=== PATIENT | female | born 1960 | race Caucasian/White ===

== ENCOUNTER → 2016-10-11 09:21 | Outpatient (CLI) | payer MEDICARE ==
[2016-03-15 09:36] VITALS: BMI 20.1
[~2016-10-11 09:21] MED LIST: BAYER CHEWABLE81 MG PO; CARAFATE1 G PO; CIPRO250 MG PO; DILAUDID4 MG PO; DYAZIDE 37.5/251 CAP PO; HYDROCODONE-APA1 TAB PO; LIBRAX CAPSULE1 CAP PO; NEXIUM40 MG PO; PLETAL100 MG PO; PROTONIX40 MG PO; REGLAN5 MG PO; REVATIO20 MG PO
== END | disposition home or self-care (01) ==
LOC: D.CT 09:21
DX: R13.10 Dysphagia, unspecified (principal)

== ENCOUNTER → 2016-11-13 08:06 | Day surgery (SDC) | payer MEDICARE ==
[~2016-11-13] VITALS: Ht 167.6 cm; Wt 47.6 kg
[~2016-11-13 08:06] MED LIST changes: +ZANTAC150 MG PO
[2016-11-13 08:48] VITALS: BP 116/74; Ht 167.6 cm; Wt 47.6 kg
[2016-11-13 09:40] LABS: HEMATOCRIT 37.2 % (36.0-48.0); HEMOGLOBIN 12.5 g/dL (12-16); MCH 37.7 pg (26.0-34.0); MCHC 33.6 g/dL (31.0-37.0); MEAN PLATELET VOLUME 9.6 fL (7.4-10.4); RBC 3.32 10x6/uL (4.00-5.40); RDW 14.4 % (11.5-14.5)
[2016-11-13 09:54] LABS: HCG SERUM NEGATIVE (NEGATIVE)
--- NOTE | 2016-11-13 15:32 | NUR ---
1305 PT ESCORTED OUT BY VOLUNTEER AND ACCOMPANIED BY HER SISTER.
== END | disposition home or self-care (01) ==
LOC: D.OPS 08:00
PROVIDERS: Anesthesiology; Surgery
DX: K22.70 Barrett's esophagus without dysplasia (principal); R13.10 Dysphagia, unspecified; K21.9 Gastro-esophageal reflux disease without esophagitis; Z01.812 Encounter for preprocedural laboratory examination

== ENCOUNTER 2016-12-09 13:56 | Outpatient (CLI) | payer MEDICARE ==
--- NOTE | 2016-12-09 15:12 | NUR ---
1415-PATIENT BEING ESCORTED WITH VOLUNTEER TO OUTPATIENT DEPARTMENT. FELL IN THE HALLWAY. LANDED ON HER RIGHT SIDE, BUT HAD ALREADY TURNED ONTO HER BACK BEFORE NURSE ARRIVED TO ASSESS HER. R SIDE OF FACE REDDENED AND STARTING TO SWELL, ICE PACK APPLIED. COMPLAINS OF R WRIST PAIN, BUT ABLE TO MOVE HAND/FINGERS. STATES NECK IS STIFF. ER NOTIFIED TO BRING STRETCHER. SLIDE BOARD AND C COLLAR. ELECTORATE OFFICER NOTIFIED. ENGINEERING NOTIFIED. PATIENT AND HER SISTER IN AGREEMENT TO GO TO ER FOR EVALUATION. 1430-TRANSPORTED TO THE ER VIA STRETCHER WITH C COLLAR IN PLACE. 1445-DR BEGUM'S NURSE, SD, NOTIFIED OF ABOVE.
[2016-12-09 16:36] LABS: BASOPHILS 0.4 % (0-2); EOSINOPHILS 0.5 % (0-7); HEMATOCRIT 37.4 % (36.0-48.0); HEMOGLOBIN 12.7 g/dL (12-16); IMMATURE GRANULOCYTES 0.2 % (0-5); LYMPHOCYTES 25.7 % (15-50); MCH 37.4 pg (26.0-34.0); MEAN PLATELET VOLUME 9.7 fL (7.4-10.4); MONOCYTES 11.2 % (2-11); PLATELET COUNT 283 10x3/uL (130-400); RDW 14.9 % (11.5-14.5); WBC 5.6 10x3/uL (4.8-10.8)
[2016-12-09 16:52] LABS: ALKALINE PHOSPHATASE 423 U/L (46-116); ALT (SGPT) 46 U/L (10-68); BILIRUBIN - TOTAL 2.26 mg/dL (0.2-1.3); CALC OSMOLALITY 274 mosm/kg (275-300); CALCIUM 7.7 mg/dL (8.5-10.1); CARBON DIOXIDE 31.4 mmol/L (21.0-32.0); CHLORIDE - SERUM 99 mmol/L (98-107); CREATININE - SERUM 0.3 mg/dL (0.6-1.3); GLUCOSE 102 mg/dL (74-106); PROTEIN - SERUM 6.2 g/dL (6.4-8.2); SODIUM 138 mmol/L (136-145); UREA NITROGEN 9 mg/dL (7-18); eGFR NON AFRICAN AMERICAN > 90 mL/min (90-120)
[2016-12-09 19:31] VITALS: Ht 167.6 cm
--- NOTE | 2016-12-09 20:09 | NUR ---
PATIENT TRANSFERRED TO ROOM 2237 IN WHEELCHAIR FOR REMAINDER OF INFUSION
--- NOTE | 2016-12-09 20:45 | NUR ---
RECIEVED PT TO FLOOR FROM OUTPATIENT. K+ RIDERS INFUSING AT THIS TIME. PT IS ALERT AND ORIENTED AND ABLE TO VERBALIZE NEEDS. PT TRANSFERED SELF TO BED FROM WHEELCHAIR. PT IS ORIENTED TO ROOM AND USE OF CALL LIGHT. NO NEEDS ARE VERBALIZED AT THIS TIME. WILL CONTINUE TO MONITOR. SIDE RAILS ARE UP X 2. BED IS IN LOWEST POSITION. CALL LIGHT IS WITHIN REACH.
--- NOTE | 2016-12-10 02:30 | NUR ---
K+ RIDERS FINISHED AT THIS TIME. IV D/C'D WITH CATHETER TIP INTACT. PT WHEELED DOWN TO AWAITING RIDE.
== END 2016-12-10 02:30 | disposition home or self-care (01) ==
LOC: D.OPS 13:56 → D.ER 13:56 → D.MS 20:10 → D.OPS 12-10 02:30
PROVIDERS: Family Medicine
DX: E87.6 Hypokalemia (principal); S06.0X0A Concussion without loss of consciousness, initial encounter; W01.198A Fall on same level from slipping, tripping and stumbling with subsequent striking against other object, initial encounter; S16.1XXA Strain of muscle, fascia and tendon at neck level, initial encounter; S63.501A Unspecified sprain of right wrist, initial encounter

== ENCOUNTER → 2017-02-28 07:41 | Outpatient (CLI) | payer MEDICARE | END | disposition home or self-care (01) | LOC: D.CT 07:41 | DX: R94.5 Abnormal results of liver function studies (principal) ==

== ENCOUNTER 2017-03-10 13:59 | Inpatient (IN) | payer MEDICARE ==
[~2017-03-10] VITALS: Ht 167.6 cm; Wt 79.1 kg
--- NOTE | ~2017-03-10 | HEMODYNAMI ---
PATIENT:KINGSLEY BASHIR MEDICAL RECORD: [id number] : 64 LOCATION:[facility] D.[address] [facility]# [id number] ADMISSION DATE: 03/10/17 Generatedon:03/18/201713:21 Patient name: KINGSLEY BASHIR Patient #: [id number] SSN: [id number] : 1960 Date of study: 03/18/2017 Page: Of Hemodynamic Procedure Report Patient Data Patient Demographics Procedure consent was obtained First Name: KINGSLEY Gender: Female Last Name: MCKAY : 1960 Middle Initial: PATTI Age: 56 year(s) Patient #: [id number] Race: SSN: [id number] Additional ID: [id number] Contact details [address]: [address] [place] [address] rd State: [place] City: [place] Zip code: [address] Past Medical History Allergies Allergen Reaction Date Comments Reported Other allergy 03/18/2017 rocephin Admission Admission Data Admission Date: 03/10/2017 Admission Time: 19:18 Room #: [facility] Procedure Procedure Types Cath Procedure Diagnostic Procedure [facility] w/Coronaries Miscellaneous Procedures Moderate Sedation up to 30 minutes Procedure Description Procedure Date Procedure Date: 03/18/2017 Procedure Start Time: 12:48 Procedure End Time: 13:08 Procedure Staff Name Function Yariel Gonsalez MD Performing Physician Nelia Fitzpatrick RT Monitor Ana Padilla RT Scrub Krysten Chery RN Nurse Lashonda Soriano RT Scrub Procedure Data Cath Procedure Fluoroscopy Diagnostic fluoroscopy Total fluoroscopy Time: 4.2 time: 4.2 min min Diagnostic fluoroscopy Total fluoroscopy dose: 363 dose: 363 mGy mGy Contrast Material Contrast Material Type Amount (ml) Isovue 300 35 Entry Location Entry Primary Successful Side Size Upsize Upsize Entry Closure Fernando ccessful Closure Location (Fr) 1 (Fr) 2 (Fr) Remarks Device Remarks Femoral Right 5 Fr Manual vein Compression Femoral Right 5 Fr Sheath artery sutured in place Estimated blood loss: 5 ml Diagnostic catheters Device Type Used For End Catheter Placement Cordis 5Fr JL 4.0 Left Coronary Catheter (MP) Angiography Cordis 5Fr 3DRC Catheter Right Coronary (MP) Angiography Cordis 5Fr Pigtail LV Angiography Catheter (MP) Procedure Complications No complications Procedure Medications Medication Administration Route Dosage Oxygen 100 Lidocaine 2% added to field 20 Heparin Flush Bag added to field 2 bags (1000units/500ml NS) unlisted medication Hemodynamics Rest Heart Rate: 90 (bpm) Pressure Samples Time Site Value (mmHg) Purpose Heart Use Rate(bpm) 13:02 LV 107/27,42 EDP 187 Gradients Valve Time Site Site Mean SEP/DFP Peak To Heart Use 1 2 (mmHg) (sec/min) Peak Rate (mmHg) (bpm) Aortic 13:04 LV AO 215 Snapshots Pre Cath Intra NCS Post Cath Vital Signs Time Heart Resp etCO2 NIBP Rhythm Pain Sedation Rate (ipm) (mmHg) (mmHg) Status Level (bpm) 12:45:48 122 16 0 102/79(89) ST 0 (11) 4(A) , No pain 12:49:48 126 16 0 98/77(92) ST 0 (11) 4(A) , No pain 12:53:56 123 16 0 98/74(88) ST 0 (11) 4(A) , No pain 12:57:56 120 16 0 97/77(92) NSR 0 (11) 4(A) , No pain 13:01:55 124 16 0 90/70(78) NSR 0 (11) 4(A) , No pain 13:06:54 124 16 0 Measuring NSR 0 (11) 4(A) , No pain 13:08:02 123 16 0 Disturbed NSR 0 (11) 4(A) , No pain Medications Time Medication Route Dose Verified Delivered Reason Not es Effectiveness by by 12:44:00 Oxygen intubated 100% Yariel Buffie for low 02 ventilator Sunshine Chery RN sats 12:44:07 Lidocaine 2% added to 20ml vial Yariel Yariel for local field Sunshine Gonsalez MD anesthetic 12:44:14 Heparin Flush added to 2 bags Yariel Yariel used for Bag field Sunshine Gonsalez MD procedure (1000units/500ml NS) 12:44:39 infusions per Yariel Yariel icu Sunshine Gonsalez MD, MD Procedure Log Time Note 11:54:57 Informed consent obtained and on chart 11:55:55 Diagnostic Cath Status : Elective 11:56:32 Nelia Fitzpatrick RT(R) sent for patient. Start room use. 11:56:33 Time tracking: Regular hours 11:56:38 Plan of Care:Hemodynamics will remain stable., Cardiac rhythm will remain stable., Comfort level will be maintained., Respiratory function will remain adequate., Patient/ family verbilizes understanding of procedure., Procedure tolerated without complication., Recovers from procedure without complications.. 12:44:00 Oxygen 100% ventilator intubated was administered by Krysten Chery RN; for low 02 sats; 12:44:07 Lidocaine 2% 20ml vial added to field was administered by Yariel Gonsalez MD; for local anesthetic; 12:44:14 Heparin Flush Bag (1000units/500ml NS) 2 bags added to field was administered by Yariel Gonsalez MD; used for procedure; 12:44:37 Patient received from ICU to [facility] 2 On ventilator. Tansferred to table in Supine position. 12:44:38 Warm blankets applied, and ignacio hugger turned on for patient comfort. 12:44:39 infusions per icu was administered by Yariel Gonsalez MD; ; 12:44:39 Correct patient and procedure confirmed by team. 12:44:50 Signed procedure consent form obtained from patient. 12:44:51 ECG and BP/O2 sat monitors applied to patient. 12:44:51 Vital chart was started 12:44:53 Baseline sample Acquired. 12:44:58 Full Disclosure recording started 12:45:02 H&P Date Dictated: 03/18/2017 New H&P dictated by physician.. 12:45:03 Pre-procedure instructions explained to patient. 12:45:04 Pre-op teaching completed and patient verbalized understanding. 12:45:06 Family in waiting room. 12:45:07 Patient NPO since Midnight. 12:46:05 Patient allergic to Other allergyrocephin 12:46:08 Is the patient allergic to Iodine/contrast media? Unknown. 12:46:09 Was the patient premedicated? Unknown 12:46:10 Is patient on blood thinner?Unknown 12:46:12 Patient diabetic? Unknown. 12:46:15 Previous problem with sedation/anesthesia? Unknown ? 12:46:17 Snore? Unknown 12:46:18 Sleep apnea? Unknown 12:46:20 Deviated septum? No 12:46:22 Opens mouth fully? Unknown 12:46:23 Sticks out tongue? Unknown 12:46:25 Airway obstruction? Unknown ? 12:46:28 Dentures? Unknown ? 12:46:33 Pre procedure: right dorsailis pedis pulse Doppler 12:46:35 Pre procedure: left dorsailis pedis pulse Doppler 12:46:38 Patient pain scale 0/10 ?. 12:47:08 IV patent on arrival in port with 0.9% NaCl at [facility]. 12:47:17 Lab results completed and on chart. 12:47:20 Right groin area was prepped with chlora-prep and draped in sterile fashion 12:47:21 Alarms reviewed by R. N. 12:47:21 Sharps counted by scrub and verified by R.N. 12:47:23 Physician arrived 12:47:23 --------ALL STOP TIME OUT------ 12:47:24 Final Timeout: patient, procedure, and site verified with staff and physician. All members of the team are in agreement. 12:47:26 Right groin site verified by team. 12:47:29 Physical assessment completed. ASA score P 4 - A patient with severe systemic disease that is a constant threat to life as per Yariel Gonsalez MD. 12:47:42 Sedation plan: IV Moderate Sedation Medication:Versed, Fentanyl 12:47:50 Use device set Femoral Dx 12:47:52 Acist Syringe opened to sterile field. 12:47:52 Bag Decanter opened to sterile field. 12:47:52 Medline Cath Pack opened to sterile field. 12:47:53 Terumo 5Fr [place] Sheath opened to sterile field. 12:47:53 St Justin 260cm J .035 wire opened to sterile field. 12:48:02 Acist Hand Control opened to sterile field. 12:48:02 Acist Manifold opened to sterile field. 12:48:03 Diagnostic Infinity 5Fr Multipack catheter opened to sterile field. 12:48:03 Tegaderm 4 x 4 opened to sterile field. 12:48:11 Procedure started. 12:48:15 Local anesthetic to right femoral artery with Lidocaine 2% by Yariel Gonsalez MD.INITIAL ACCESS ONLY 12:48:16 Access obtained with 4Fr micropunture. 12:48:31 Zero performed for pressure channel P1 12:48:57 Terumo 7Fr [place] Sheath opened to sterile field. 12:50:23 Zero performed for pressure channel P1 12:51:26 A 5 Fr sheath was inserted into the Right Femoral vein 12:55:28 Terumo 5Fr [place] Sheath opened to sterile field. 12:55:41 A 5 Fr sheath was inserted into the Right Femoral artery 12:56:38 A Cordis 5Fr JL 4.0 Catheter (MP) was advanced over the wire and used for Left Coronary Angiography. 12:58:07 LCA angiography performed. 12:58:10 Injector settings: Ml/sec: 3, Volume: 6, 12:59:18 Catheter removed. 12:59:22 A Cordis 5Fr 3DRC Catheter (MP) was advanced over the wire and used for Right Coronary Angiography. 13:00:29 RCA angiography performed. 13:00:31 Injector settings: Ml/sec: 3, Volume: 6, 13:01:08 Catheter removed. 13:01:13 A Cordis 5Fr Pigtail Catheter (MP) was advanced over the wire and used for LV Angiography. 13:02:28 LV hemodynamics recorded. 13:02:29 LV gram done using BUITRAGO 13:02:32 Injector settings: Ml/sec: 5, Volume: 15, 13:05:22 EF : 15 % 13:05:43 Catheter removed. 13:06:20 Arterial sheath sutured in place with 2.0 silk sutures 13:06:56 Sheath removed intact; hemostasis achieved with Sheath sutured in place to the Right Femoral artery. 13:07:03 Sheath removed intact; hemostasis achieved with Manual Compression to the Right Femoral vein. 13:07:06 Procedure ended.(Physican Out) 13:07:46 Fluoroscopy time 04.20 minutes. 13:07:53 Flurop Dose total: 363 13:07:53 Fluoroscopy dose: 363 mGy 13:08:00 Contrast amount:Isovue 300 35ml. 13:08:01 Sharps counted by scrub and verified by R.N. 13:08:03 Insertion/operative site no bleeding no hematoma. 13:08:11 Post right femoral artery:stable 13:08:13 Post Procedure Pulses reassessed and unchanged 13:08:18 Post procedure rhythm: unchanged. 13:08:21 Estimated blood loss: 5 ml 13:08:23 Post procedure instruction explained to patient.Patient verbalizes understanding. 13:08:23 Patient needs reinforcement of post procedure teaching. 13:08:39 Procedure type changed to Cath procedure, Diagnostic procedure, LHC, LHC w/Coronaries, Miscellaneous Procedures, Moderate Sedation up to 30 minutes 13:08:40 Procedure and supply charges have been captured, reviewed, submitted and are correct. 13:08:44 Procedure Complication : No complications 13:08:47 Vital chart was stopped 13:08:47 See physician's report for complete and final results. 13:08:52 Report given to ICU. 13:08:54 Patient transfered to ICU with Stretcher. 13:08:56 Procedure ended. 13:08:56 Full Disclosure recording stopped 13:09:00 End room use (Document Last) Device Usage Item Name Manufacture Quantity Catalog Hospital Part Current Minimal Lo t# / Number Charge Number Stock Stock Serial# Code Acist Acist 1 75148 [id number] 354882 666461 20 Syringe Medical Systems Inc Bag Microtek 1 2002S 739275 66883 759120 5 Decanter Medical Inc. Medline Cardinal 1 [id number] 883659 16549 867331 5 Cath Pack Health Terumo 5Fr Terumo 2 [id number] 488332 656974 978291 [address] [facility] 1 233943 303731 124783 285043 30 260cm J .035 wire Acist Hand Acist 1 95707 698025 125528 060592 5 Control Medical Systems Inc Acist Acist 1 87668 944214 216407 636293 5 Manifold Medical Systems Inc Diagnostic Cardinal 1 [id number] 100816 03021 954940 30 Infinity Health 5Fr Multipack catheter Tegaderm 4 3M 1 1626W 557694 735256 825765 5 x 4 Terumo 7Fr Terumo 1 XCK979 938445 406802 632584 5 [place] Sheath Cordis 5Fr Cardinal 1 344404 5 JL 4.0 Health Catheter (MP) Cordis 5Fr Cardinal 1 025847 5 3DRC Health Catheter (MP) Cordis 5Fr Cardinal 1 145878 5 Pigtail Health Catheter (MP) Signature Audit [place] Stage Time Signature Unsigned Intra-Procedure 03/18/2017 Ana Padilla 1:20:57 PM RT(R) Signatures Monitor : Nelia Fitzpatrick Signature : RT Date : Time : [facility] [address] [place] [address]
[2017-03-10 15:28] LABS: BASOPHILS 0.4 % (0-2); EOSINOPHILS 0.2 % (0-7); HEMOGLOBIN 11.9 g/dL (12-16); LYMPHOCYTES 29.5 % (15-50); MCV 108.7 fL (80.0-100.0); MEAN PLATELET VOLUME 9.8 fL (7.4-10.4); MONOCYTES 7.9 % (2-11); RBC 3.22 10x6/uL (4.00-5.40); RDW 16.2 % (11.5-14.5); WBC 4.7 10x3/uL (4.8-10.8)
[2017-03-10 15:29] LABS: PLATELET COUNT 170 10x3/uL (130-400)
[2017-03-10 15:55] LABS: ALBUMIN 1.6 g/dL (3.4-5.0); ALKALINE PHOSPHATASE 450 U/L (46-116); ALT (SGPT) 38 U/L (10-68); AMYLASE - SERUM 38 U/L (25-115); BILIRUBIN - TOTAL 2.33 mg/dL (0.2-1.3); CALCIUM 7.9 mg/dL (8.5-10.1); CARBON DIOXIDE 15.4 mmol/L (21.0-32.0); CHLORIDE - SERUM 94 mmol/L (98-107); CREATININE - SERUM 0.7 mg/dL (0.6-1.3); LIPASE 55 U/L (73-393); PROTEIN - SERUM 6.3 g/dL (6.4-8.2); SODIUM 137 mmol/L (136-145); UREA NITROGEN 4 mg/dL (7-18); eGFR NON AFRICAN AMERICAN > 90 mL/min (90-120)
[2017-03-10 15:59] LABS: CALC OSMOLALITY 267 mosm/kg (275-300); GLUCOSE 49 mg/dL (74-106); POTASSIUM - SERUM 2.6 mmol/L (3.5-5.1)
[2017-03-10 17:31] LABS: APPEARANCE CLEAR (CLEAR); BILIRUBIN NEGATIVE (NEGATIVE); COLOR AMBER (YELLOW); GLUCOSE NEGATIVE (NEGATIVE); KETONE LARGE mg/dL (NEGATIVE); NITRITE NEGATIVE (NEGATIVE); PROTEIN NEGATIVE (NEGATIVE); SPECIFIC GRAVITY 1.015 (1.005-1.020); UROBILINOGEN NORMAL (NORMAL)
--- NOTE | 2017-03-10 20:22 | NUR ---
PT RECEIVED TO ROOM 2229 VIA STRETCHER BY ER STAFF. FAMILY AT BEDSIDE.
--- NOTE | 2017-03-10 20:30 | NUR ---
ADMISSION ASSESSMENT COMPLETED AT THIS TIME. IV RIGHT FOREARM PATENT. PT AOX4, STATES WEAKNESS IN AMBULATING DUE TO POOR DIET FOR THE PAST WEEK. STATES PAIN IN RUQ 8/10. CALL LIGHT IN REACH, ENCOURAGED PT TO CALL FOR ASSISTANCE TO BATHROOM. BED LOW. WILL CONTINUE WITH PLAN OF CARE.
[2017-03-10 20:37] VITALS: BP 98/68; BMI 16.9
--- NOTE | 2017-03-10 23:06 | NUR ---
PRN ZOFRAN ADMINISTERED FOR NAUSEA.
--- NOTE | 2017-03-11 02:17 | NUR ---
PRN DILAUDID ADMINISTERED AT THIS TIME FOR PAIN 01/12. PT STATES FEELING NAUSEATED, IT IS NOT TIME FOR NEXT DOSE OF ZOFRAN. WILL CONTINUE WITH PLAN OF CARE.
[2017-03-11 04:00] VITALS: BP 74/43
[2017-03-11 09:13] LABS: BASOPHILS 0.3 % (0-2); EOSINOPHILS 0.6 % (0-7); LYMPHOCYTES 18.3 % (15-50); MCH 36.9 pg (26.0-34.0); MCHC 34.3 g/dL (31.0-37.0); MCV 107.6 fL (80.0-100.0); MEAN PLATELET VOLUME 9.2 fL (7.4-10.4); MONOCYTES 10.6 % (2-11); NEUTROPHILS 70.2 % (40-80); RDW 16.2 % (11.5-14.5)
[2017-03-11 09:18] LABS: HEMATOCRIT 26.8 % (36.0-48.0); HEMOGLOBIN 9.2 g/dL (12-16); PLATELET COUNT 117 10x3/uL (130-400); RBC 2.49 10x6/uL (4.00-5.40); WBC 3.1 10x3/uL (4.8-10.8)
[2017-03-11 09:27] LABS: ALBUMIN 1.3 g/dL (3.4-5.0); ALKALINE PHOSPHATASE 350 U/L (46-116); ALT (SGPT) 30 U/L (10-68); BILIRUBIN - TOTAL 1.62 mg/dL (0.2-1.3); CALCIUM 7.3 mg/dL (8.5-10.1); CHLORIDE - SERUM 101 mmol/L (98-107); CREATININE - SERUM 0.8 mg/dL (0.6-1.3); PROTEIN - SERUM 5.2 g/dL (6.4-8.2); SODIUM 135 mmol/L (136-145); UREA NITROGEN 3 mg/dL (7-18); eGFR NON AFRICAN AMERICAN 79 mL/min (90-120)
[2017-03-11 09:38] VITALS: BP 85/47
[2017-03-11 09:41] LABS: CALC OSMOLALITY 270 mosm/kg (275-300); GLUCOSE 178 mg/dL (74-106)
[2017-03-11 09:42] LABS: CARBON DIOXIDE 26.7 mmol/L (21.0-32.0); POTASSIUM - SERUM 2.6 mmol/L (3.5-5.1)
--- NOTE | 2017-03-11 09:43 | NUR ---
LAB CALLED WITH CRITICAL LAB. K+ 2.6.
--- NOTE | 2017-03-11 12:52 | NUR ---
Patient Name: KINGSLEY BASHIR Admission Status: ER Accout number: [id number] Admission Date: 03-10-2017 : 1960 Admission Diagnosis: Attending: Isidro Begum Current LOS: 1 Anticipated DC Date: 03-14-2017 Planned Disposition: Home Primary Insurance: MEDICARE A & B Discharge Planning Comments: CM MET WITH PATIENT REGARDING D/C NEEDS AND PLANS. PATIENT STATED SHE LIVES WITH HER SPOUSE (DARRICK) AND HE WILL DRIVE HER HOME AT DISCHARGE. PATIENT STATED SHE HAS 2 STEPS TO ENTER HOME AND NO STAIRS INSIDE. PATIENT STATED SHE IS INDEPENDENT WITH HER CARE AND HAS NO DME AT HOME. PATIENTS PCP IS DR. BEGUM AND USES [facility] ON [address]. PATIENT STATED SHE DOES NO WANT HOME HEALTH. CM WILL CONTINUE TO FOLLOW PATIENT WITH D/C NEEDS AND PLANS. [facility] [phone] DARRICK (SPOUSE) [phone] Staff Occupational Therapist: Luisa Combs Is the patient Alert and Oriented? Yes 0 * How many steps to enter\exit or inside your home? 2 0 * PCP DR. BEGUM 0 * Pharmacy [email or web address] ON [address] 0 * Preadmission Environment Home with Family 0 * ADLs Independent 0 * Equipment None 0 * List name and contact numbers for known caregivers / representatives who currently or will assist patient after discharge: DARRICK (SPOUSE) [phone] 0 * Community resources currently utilized None 0 * Additional services required to return to the preadmission environment? Yes 0 * Can the patient safely return to the preadmission environment? Yes 0 * Has this patient been hospitalized within the prior 30 days at any hospital? No 0 Grand Total: 0
[2017-03-11 13:11] VITALS: BP 87/48
[2017-03-11 16:23] VITALS: BP 83/51
--- NOTE | 2017-03-11 19:16 | NUR ---
PT VISITING [facility], STATED KANDICE RASHEED SAID PT CAN HAVE PAIN PUMP, NO ORDERS IN COMPUTER AT THIS TIME, WENT TO [facility] AND RN IRISH STATED SHE WAS WITH DR WOODSON WHEN HE INFORMED PT SHE CAN HAVE ONE, IRISH PUT ORDER IN , PT ALSO STATED STILL NAUSEOUS, PER EMAR PT ZOFRAN NOT DUE UNTIL AFTER 11. PT VOICED PAIN LEVEL AT 9. INITATING ENERGY CONSERVATION REPRESENTATIVE PUMP
[2017-03-11 20:00] VITALS: BP 93/57
--- NOTE | 2017-03-11 22:46 | NUR ---
FOUND TRAM OPERATOR PUMP TO INITIATE PT PAIN MEDS, PRINTED AND HAD PT SIGN SURGERY PACKET FOR EGD WITH TIVA SCHEDULED FOR 03/12/17, NO OTHER NEEDS AT THIS TIME
[2017-03-12] VITALS: BP 78/50
[2017-03-12 04:00] VITALS: BP 88/57
[2017-03-12 05:04] LABS: BASOPHILS 0.3 % (0-2); HEMATOCRIT 27.2 % (36.0-48.0); IMMATURE GRANULOCYTES 0.3 % (0-5); LYMPHOCYTES 24.7 % (15-50); MCH 36.9 pg (26.0-34.0); MCHC 33.1 g/dL (31.0-37.0); MEAN PLATELET VOLUME 9.8 fL (7.4-10.4); MONOCYTES 8.9 % (2-11); NEUTROPHILS 64.8 % (40-80); PLATELET COUNT 128 10x3/uL (130-400); RBC 2.44 10x6/uL (4.00-5.40); RDW 16.2 % (11.5-14.5)
[2017-03-12 05:14] LABS: MCV 111.5 fL (80.0-100.0); WBC 3.9 10x3/uL (4.8-10.8)
[2017-03-12 05:17] LABS: INR 1.07 (0.85-1.17); PROTIME 13.7 SECONDS (11.6-15.0)
[2017-03-12 05:26] LABS: ALBUMIN 1.3 g/dL (3.4-5.0); ALKALINE PHOSPHATASE 330 U/L (46-116); ALT (SGPT) 24 U/L (10-68); CALCIUM 7.4 mg/dL (8.5-10.1); CARBON DIOXIDE 24.9 mmol/L (21.0-32.0); CHLORIDE - SERUM 105 mmol/L (98-107); CHOL - HDL RATIO 2.7 ratio (2.3-4.1); CHOLESTEROL, TOTAL 128 mg/dL (0-200); CREATININE - SERUM 0.6 mg/dL (0.6-1.3); HDL CHOLESTEROL 47 mg/dL (32-96); LDL CHOLESTEROL 61 mg/dL (0-100); LDL-HDL RATIO 1.3 ratio (1.5-3.5); MAGNESIUM - SERUM 1.2 mg/dL (1.8-2.4); PHOSPHOROUS 1.7 mg/dL (2.5-4.9); PRE-ALBUMIN 10.1 mg/dL (18.0-35.7); PROTEIN - SERUM 5.1 g/dL (6.4-8.2); SODIUM 137 mmol/L (136-145); TRIGLYCERIDE 103 mg/dL (30-200); eGFR NON AFRICAN AMERICAN > 90 mL/min (90-120)
[2017-03-12 05:32] LABS: AMYLASE - SERUM 23 U/L (25-115); CALC OSMOLALITY 269 mosm/kg (275-300); GLUCOSE 97 mg/dL (74-106); LIPASE 49 U/L (73-393); POTASSIUM - SERUM 3.5 mmol/L (3.5-5.1); UREA NITROGEN 2 mg/dL (7-18)
--- NOTE | 2017-03-12 08:06 | NUR ---
PT AOX4 RESP EVEN AND NONLABORED PT DENIES NEEDS AT THIS TIME IV TO RIGHT AC PATENT AND INTACT AT THIS TIME SRX2 BED AT LOWEST SETTING CALL LIGHT WITHIN REACH WILL CONTINUE TO MONITOR
[2017-03-12 08:32] VITALS: BP 91/54
[2017-03-12 12:59] VITALS: BP 96/54
[2017-03-12 13:44] VITALS: Ht 167.6 cm; Wt 79.1 kg
[2017-03-12 16:24] VITALS: BP 85/57
--- NOTE | 2017-03-12 19:31 | NUR ---
RECEIVED REPORT. PT RESTING QUIETLY, NO DISTRESS NOTED. IV RIGHT AC PATENT. DENIES ANY PAIN AT THIS TIME, STATES UTILITY WORKER IS HELPING WITH PAIN CONTROL. CALL LIGHT IN REACH, WILL CONTINUE WITH PLAN OF CARE.
--- NOTE | 2017-03-12 19:46 | NUR ---
CHANGED SETTINGS ON DILAUDID FOOD SERVICES DIRECTOR FROM 0.4/10/4 TO 0.2/10/4 ORDERED WITH KINGS DESHPANDE WITNESS. REASSESSED DIRECTIONS FOR FOOD SERVICES DIRECTOR USE WITH PATIENT, WITH VERBAL UNDERSTANDING. WILL CONTINUE WITH PLAN OF CARE.
[2017-03-12 23:58] VITALS: BP 128/68
[2017-03-13 02:33] VITALS: BP 92/60
[2017-03-13 06:30] VITALS: BP 104/48
[2017-03-13 07:36] LABS: BASOPHILS 0.2 % (0-2); EOSINOPHILS 0.5 % (0-7); HEMATOCRIT 25.7 % (36.0-48.0); HEMOGLOBIN 8.5 g/dL (12-16); IMMATURE GRANULOCYTES 0.2 % (0-5); LYMPHOCYTES 18.7 % (15-50); MCH 37.4 pg (26.0-34.0); MCHC 33.1 g/dL (31.0-37.0); MCV 113.2 fL (80.0-100.0); MEAN PLATELET VOLUME 10.4 fL (7.4-10.4); NEUTROPHILS 75.4 % (40-80); PLATELET COUNT 107 10x3/uL (130-400); RBC 2.27 10x6/uL (4.00-5.40); RDW 16.3 % (11.5-14.5)
[2017-03-13 07:39] LABS: WBC 5.8 10x3/uL (4.8-10.8)
--- NOTE | 2017-03-13 08:00 | NUR ---
REC'D IN BED AWAKE AND ALERT. RESP EVEN AND UNLABORED WITH NO DISTRESS NOTED. CAN EXPRESS NEEDS AND WANTS. ASSESSMENT COMPLETED. C/L IN REACH AT BEDSIDE.
[2017-03-13 08:36] LABS: ALBUMIN 1.1 g/dL (3.4-5.0); ALKALINE PHOSPHATASE 263 U/L (46-116); ALT (SGPT) 19 U/L (10-68); CALCIUM 7.3 mg/dL (8.5-10.1); CARBON DIOXIDE 22.5 mmol/L (21.0-32.0); CHLORIDE - SERUM 108 mmol/L (98-107); GLUCOSE 118 mg/dL (74-106); PRE-ALBUMIN 8.3 mg/dL (18.0-35.7); PROTEIN - SERUM 4.4 g/dL (6.4-8.2); SODIUM 138 mmol/L (136-145)
[2017-03-13 08:43] LABS: CALC OSMOLALITY 272 mosm/kg (275-300); CREATININE - SERUM 0.4 mg/dL (0.6-1.3); PHOSPHOROUS 1.1 mg/dL (2.5-4.9); POTASSIUM - SERUM 4.3 mmol/L (3.5-5.1); UREA NITROGEN 1 mg/dL (7-18); eGFR NON AFRICAN AMERICAN > 90 mL/min (90-120)
[2017-03-13 10:05] VITALS: BP 97/61
[2017-03-13 13:17] LABS: FOLATE (FOLIC ACID) - SERUM <2.0 ng/mL (>3.0)
[2017-03-13 13:29] VITALS: BP 85/49
[2017-03-13 16:56] VITALS: BP 100/48
[2017-03-13 20:00] VITALS: BP 77/54
[2017-03-14] VITALS: BP 70/42
--- NOTE | 2017-03-14 | NUR ---
PT RESTING QUIETLY AT THIS TIME. DENIES ANY PAIN, STATES DIRECTOR RIVER RESTORATION IS ENOUGH PAIN CONTROL. INSTRUCTED PT OF NPO STATUS DUE TO SCHEDULED EGD IN AM. CALL LIGHT IN REACH, WILL CONTINUE WITH PLAN OF CARE.
[2017-03-14 04:00] VITALS: BP 80/44
[2017-03-14 05:30] LABS: BASOPHILS 0 % (0-2); EOSINOPHILS 0.5 % (0-7); HEMATOCRIT 22.6 % (36.0-48.0); IMMATURE GRANULOCYTES 0.2 % (0-5); LYMPHOCYTES 19.2 % (15-50); MCH 36.1 pg (26.0-34.0); MCHC 32.3 g/dL (31.0-37.0); MCV 111.9 fL (80.0-100.0); MEAN PLATELET VOLUME 10.4 fL (7.4-10.4); MONOCYTES 4.2 % (2-11); NEUTROPHILS 75.9 % (40-80); PLATELET COUNT 114 10x3/uL (130-400); RBC 2.02 10x6/uL (4.00-5.40); RDW 16.6 % (11.5-14.5)
[2017-03-14 05:40] LABS: WBC 4.3 10x3/uL (4.8-10.8)
[2017-03-14 05:41] LABS: HEMOGLOBIN 7.3 g/dL (12-16)
[2017-03-14 05:55] LABS: ALKALINE PHOSPHATASE 217 U/L (46-116); ALT (SGPT) 15 U/L (10-68); BILIRUBIN - TOTAL 0.86 mg/dL (0.2-1.3); CALC OSMOLALITY 276 mosm/kg (275-300); CARBON DIOXIDE 22.2 mmol/L (21.0-32.0); CHLORIDE - SERUM 112 mmol/L (98-107); CREATININE - SERUM 0.4 mg/dL (0.6-1.3); GLUCOSE 105 mg/dL (74-106); POTASSIUM - SERUM 4.5 mmol/L (3.5-5.1); PROTEIN - SERUM 4.1 g/dL (6.4-8.2); SODIUM 141 mmol/L (136-145); UREA NITROGEN 1 mg/dL (7-18); eGFR NON AFRICAN AMERICAN > 90 mL/min (90-120)
[2017-03-14 05:58] LABS: CALCIUM 6.8 mg/dL (8.5-10.1); PHOSPHOROUS 1.9 mg/dL (2.5-4.9)
--- NOTE | 2017-03-14 06:20 | NUR ---
PAGED VENEER SPLICER PHYSICIAN FOR DR BEGUM FOR CRITICAL HGB 7.3
--- NOTE | 2017-03-14 07:24 | NUR ---
AM ROUNDS- PT UP TO BEDSIDE COMODE WITH FAMILY ASSISTANCE. RESP EVEN AND UNLABORED, NO IV ACCESS AT THIS TIME. PT A/O X4, DENIES ANY NEEDS AT THIS TIME. CALL LIGHT IN REACH, FAMILY AT BEDSIDE, NAD NOTED, WILL CONTINUE TO MONITOR.
[2017-03-14 08:11] VITALS: BP 76/41
--- NOTE | 2017-03-14 09:03 | NUR ---
PRE-OP MEDICATIONS GIVEN AT THIS TIME. PT DENIES ANY NEEDS AT THIS TIME. WAITING ON RESP TO DO EKG. NAD NOTED, WILL CONTINUE PLAN OF CARE.
--- NOTE | 2017-03-14 09:13 | NUR ---
PT TRANSFERED TO GI LAB VIA BED, NAD NOTED.
--- NOTE | 2017-03-14 10:32 | NUR ---
RECEIVED PATIENT AT 0940 BEEN COMPLAINING OF HARD TO GET A BREATH AND Javier CODY REPORTED TO ME THAT SHE TOLD MD TODAY. EKG SHOWED ACCELERATED TACH.
--- NOTE | 2017-03-14 10:33 | NUR ---
1000 COMPLETED PROCEDURE PEG AT 3.5CM DRESSING APPLIED NO BLEEDING.
--- NOTE | 2017-03-14 13:45 | NUR ---
Nutrition Follow Up: Chart reviewed. Pt is s/p PEG placement. +BM 03/06/17. Rec start TF of Osmolite 1.0 @ 10 ml/hr. Advance 10 ml every 12 hours to goal rate of 60 ml/hr. Water flushes 15 ml/hr. Goal rate will provide 1526 kcal, 63 g protein and 1194 ml free water. 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 RD following.
--- NOTE | 2017-03-14 14:00 | NUR ---
FIRST UNIT OF PRBCS STARTED INFUSING, VITAL SIGNS STABLE. PT HAS ONLY ONE IV, AND IS ALSO ON A DILAUDID HIGHWAY MAINTAINER SO WILL NEED TO START ANOTHER IV. INFUSING STARTED AT 75CC/HR. NAD NOTED, CALL LIGHT IN REACH
--- NOTE | 2017-03-14 15:19 | NUR ---
YOLANDE NGUYEN VASCULAR NURSE AT BEDSIDE TO PLACE A MIDLINE.
--- NOTE | 2017-03-14 16:43 | NUR ---
CALLED DR. BEGUM'S OFFICE SPOKE WITH DR. MACIEL INFORMED HIM THAT PT IS WANTING TO KNOW IF SHE WILL BE ABLE TO HAVE FOOD OR IS SHE STRICT NPO AFTER PEG TUBE PLACEMENT. DR. MACIEL STATED TO KEEP HER NPO AND START FEEDINGS TOMORROW.
[2017-03-14 17:19] LABS: CKMB 0.7 U/L (0.0-3.6); CREATINE KINASE 66 UL (21-215); TROPONIN-I 0.016 ng/mL (0.000-0.060)
--- NOTE | 2017-03-14 18:38 | NUR ---
FIRST UNIT OF PRBCS DONE INFUSING, VITAL SIGNS STABLE. SECOND UNIT OF PRBCS STARTED INFUSING AT THIS TIME. ALSO ADMINISTERED 25MG OF PHENERGAN IM. PT DENIES ANY OTHER NEEDS AT THIS TIME. CALL LIGHT IN REACH, NAD NOTED, WILL CONTINUE TO MONITOR.
--- NOTE | 2017-03-14 19:00 | NUR ---
REPORT RECEIVED AND CARE OF PT ASSUMED. PT LYING IN HIGH CUELLO'S POSITION WATCHING TV. LEFT MIDLINE PATENT WITH PRBC'S INFUSING AT THIS TIME. IV IN LEFT WRIST PATENT WITH NS W/ 40 KCL INFUSING AT 75 ML / HR. WILL MONITOR FOR NEEDS.
--- NOTE | 2017-03-14 21:05 | NUR ---
INFUSION OF PRBC'S COMPLETE. VITALS STABLE AND PT IS AFEBRILE.
--- NOTE | 2017-03-14 21:05 | NUR ---
HS MEDICATIONS GIVEN. WILL CONTINUE TO MONITOR FOR NEEDS.
--- NOTE | 2017-03-14 21:30 | NUR ---
ASSISTED PT TO AMBULATED TO RESTROOM. POSITIONED BACK IN BED FOR COMFORT.
[2017-03-14 23:06] LABS: CKMB 0.6 U/L (0.0-3.6); CREATINE KINASE 81 UL (21-215)
[2017-03-14 23:10] LABS: MAGNESIUM - SERUM 1.8 mg/dL (1.8-2.4); PHOSPHOROUS 2.4 mg/dL (2.5-4.9)
[2017-03-15] VITALS: BP 112/76
--- NOTE | 2017-03-15 02:41 | NUR ---
ASSISTED PT UP TO SIT IN CHAIR. KAMILAH ALARM IN PLACE. CALL LIGHT AND CAPTAIN/AIRLINE PILOT BUTTON WITHIN REACH. WILL CONTINUE TO MONITOR FOR NEEDS.
--- NOTE | 2017-03-15 03:47 | NUR ---
PT HELPED BACK IN BED PER REQUEST. BED ALARM IN PLACE, PT MORE CONFUSED THIS EVENING. CALL LIGHT WITHIN REACH.
[2017-03-15 05:48] LABS: BASOPHILS 0 % (0-2); EOSINOPHILS 0 % (0-7); IMMATURE GRANULOCYTES 0.3 % (0-5); LYMPHOCYTES 10.2 % (15-50); MCH 34.2 pg (26.0-34.0); MCHC 34.4 g/dL (31.0-37.0); MEAN PLATELET VOLUME 10.7 fL (7.4-10.4); MONOCYTES 3.8 % (2-11); NEUTROPHILS 85.7 % (40-80); RDW 21.1 % (11.5-14.5)
[2017-03-15 05:49] LABS: HEMOGLOBIN 11.7 g/dL (12-16); MCV 99.4 fL (80.0-100.0); PLATELET COUNT 70 10x3/uL (130-400); RBC 3.42 10x6/uL (4.00-5.40); WBC 6.1 10x3/uL (4.8-10.8)
[2017-03-15 06:18] LABS: ALBUMIN 1.1 g/dL (3.4-5.0); ALKALINE PHOSPHATASE 225 U/L (46-116); ALT (SGPT) 18 U/L (10-68); BILIRUBIN - TOTAL 1.39 mg/dL (0.2-1.3); CALC OSMOLALITY 283 mosm/kg (275-300); CALCIUM 7.3 mg/dL (8.5-10.1); CARBON DIOXIDE 18.9 mmol/L (21.0-32.0); CHLORIDE - SERUM 112 mmol/L (98-107); CREATININE - SERUM 0.3 mg/dL (0.6-1.3); GLUCOSE 116 mg/dL (74-106); MAGNESIUM - SERUM 1.7 mg/dL (1.8-2.4); PHOSPHOROUS 2.5 mg/dL (2.5-4.9); POTASSIUM - SERUM 4.3 mmol/L (3.5-5.1); PROTEIN - SERUM 4.7 g/dL (6.4-8.2); SODIUM 144 mmol/L (136-145); UREA NITROGEN 1 mg/dL (7-18); eGFR NON AFRICAN AMERICAN > 90 mL/min (90-120)
--- NOTE | 2017-03-15 08:00 | NUR ---
PT RESTING IN BED WITH EYES OPEN CALL LIGHT IN REACH NO PROBLEMS WILL MONITER
[2017-03-15 10:26] VITALS: BP 109/77
[2017-03-15 12:46] VITALS: BP 99/64
--- NOTE | 2017-03-15 12:48 | NUR ---
Received consult for tube feed. RD saw pt on 03/14. called nurse to verify continous feeds would still plan, this is correct. please see RD note for further instruction and tube feed providing.
--- NOTE | 2017-03-15 15:00 | NUR ---
LYING IN BED,WITHOUT DISTRESS.FAMILY AT BEDSIDE.
--- NOTE | 2017-03-15 15:45 | NUR ---
PT TUBE FEEDING STARTED OSMOLITE 1.0 10CC/HR PER ORDER DR KANDICE CURIEL TO START INCREASE Q 12 HRS PER ORDER
[2017-03-15 15:49] VITALS: BP 101/67
--- NOTE | 2017-03-15 19:00 | NUR ---
REPORT RECEIVED AND CARE OF PT ASSUMED. PT LYING IN SEMI CUELLO'S POSITION WITH EYES CLOSED AND EASY RESPIRATIONS. FAMILY MEMBERS ARE AT BEDSIDE. LEFT MIDLINE PATENT WITH NSW/ 40 KCL INFUSING AT 125 ML / HR. PEG TUBE PATENT WITH OFMOLITE INFUSING VIA FEEDING PUMG AT 10 ML / HR. WILL MONITOR CLOSELY FOR NEEDS.
--- NOTE | 2017-03-15 19:30 | NUR ---
PLACED SCD'S ON PT. WILL CONTINUE TO MONITOR CLOSLY.
--- NOTE | 2017-03-15 21:15 | NUR ---
HS MEDICATIONS GIVEN. WILL CONTINUE TO MONITOR FOR NEEDS. FAMILY MEMBERS REMAIN AT BEDSIDE.
[2017-03-15 21:25] VITALS: BP 110/80
[2017-03-16 00:27] VITALS: BP 103/73
--- NOTE | 2017-03-16 02:44 | NUR ---
GAVE ATIVAN PO PER PRN ORDER FOR ANXIETY...PT VERY ANXIOUS AND RESTLESS. WILL MONITOR FOR EFFECTIVENESS.
--- NOTE | 2017-03-16 03:30 | NUR ---
INCREASED RATE ON TUBE FEEDING TO 20 ML/HR PER ORDER TO INCREASE BY 10 EVERY 12 HOURS.
--- NOTE | 2017-03-16 04:30 | NUR ---
PT SITTING UP ON SIDE OF BED FOR APPROX 45 MINUTES. POSITIONED BACK IN BED FOR COMFORT.
[2017-03-16 05:53] VITALS: BP 148/86
[2017-03-16 06:04] LABS: BASOPHILS 0 % (0-2); EOSINOPHILS 0 % (0-7); HEMATOCRIT 32.2 % (36.0-48.0); HEMOGLOBIN 11.1 g/dL (12-16); IMMATURE GRANULOCYTES 0.4 % (0-5); MCH 33.9 pg (26.0-34.0); MCHC 34.5 g/dL (31.0-37.0); MCV 98.5 fL (80.0-100.0); MEAN PLATELET VOLUME 10.4 fL (7.4-10.4); MONOCYTES 7.1 % (2-11); NEUTROPHILS 82.5 % (40-80); PLATELET COUNT 86 10x3/uL (130-400); RBC 3.27 10x6/uL (4.00-5.40); RDW 20.7 % (11.5-14.5); WBC 5.5 10x3/uL (4.8-10.8)
[2017-03-16 06:23] LABS: ALBUMIN 1.1 g/dL (3.4-5.0); ALKALINE PHOSPHATASE 183 U/L (46-116); ALT (SGPT) 17 U/L (10-68); CALC OSMOLALITY 280 mosm/kg (275-300); CALCIUM 7.3 mg/dL (8.5-10.1); CARBON DIOXIDE 22.4 mmol/L (21.0-32.0); CHLORIDE - SERUM 113 mmol/L (98-107); GLUCOSE 100 mg/dL (74-106); MAGNESIUM - SERUM 1.4 mg/dL (1.8-2.4); PHOSPHOROUS 2.5 mg/dL (2.5-4.9); POTASSIUM - SERUM 4.4 mmol/L (3.5-5.1); PROTEIN - SERUM 4.1 g/dL (6.4-8.2); SODIUM 143 mmol/L (136-145); UREA NITROGEN 1 mg/dL (7-18)
[2017-03-16 06:27] LABS: CREATININE - SERUM 0.4 mg/dL (0.6-1.3); eGFR NON AFRICAN AMERICAN > 90 mL/min (90-120)
[2017-03-16 06:45] LABS: PLATELET ESTIMATE DECREASED; PLATELET MORPHOLOGY GIANT PLTS PRESENT
[2017-03-16 07:44] VITALS: BP 126/86
--- NOTE | 2017-03-16 08:07 | NUR ---
PT AOX4 RESP EVEN AND NONLABORED PT DENIES NEEDS AT THIS TIME IV TO LEFT FOREARM PATENT AND INTACT AT THIS TIME SRX2 BED AT LOWEST SETTING CALL LIGHT WITHIN REACH WILL CONTINUE TO MONITOR
[2017-03-16 12:25] VITALS: BP 114/75
--- NOTE | 2017-03-16 19:00 | NUR ---
REPORT RECEIVED AND CARE OF PT ASSUMED. PT SITTING UP AT BEDSIDE. O2 AT 2L VIA NC IN USE. PEG TUBE PATENT WITH OSMOLITE 1.O INFUSING VIA FEEDING PUMP AT 30 ML / HR. LEFT MIDLINE PATENT WITH NS W/ 40 KCL INFUSING AT 125 ML / HR. LINE CONSTRUCTION SUPERINTENDENT / DILAUDID IN USE FOR PAIN CONTROL. WILL MONITOR FOR NEEDS. CALL LIGHT WITHIN REACH.
[2017-03-16 19:44] VITALS: BP 105/78
--- NOTE | 2017-03-16 21:13 | NUR ---
PT RESTING IN HIGH CUELLO'S POSITION WITH FAMILY MEMBERS AT BEDSIDE. CALL LIGHT WITHIN REACH.
[2017-03-16 23:44] VITALS: BP 77/59
--- NOTE | 2017-03-16 23:51 | NUR ---
PT WANTED TO SIT ON SIDE OF BED FOR A WHILE...AFTER 30 MINS VITALS WERE TAKEN AND BP RUNNING LOW. POSITIONED BACK IN BED WITH FEET ELEVATED. WILL CONTINUE TO MONITOR CLOSELY.
[2017-03-17] VITALS (50 sets, daily range): BP systolic 71–124; BP diastolic 47–91
[2017-03-17 06:22] LABS: BASOPHILS 0.2 % (0-2); EOSINOPHILS 0.2 % (0-7); HEMATOCRIT 36.5 % (36.0-48.0); HEMOGLOBIN 11.7 g/dL (12-16); IMMATURE GRANULOCYTES 0.4 % (0-5); LYMPHOCYTES 16.3 % (15-50); MCH 34.2 pg (26.0-34.0); MCHC 32.1 g/dL (31.0-37.0); MONOCYTES 7.5 % (2-11); NEUTROPHILS 75.4 % (40-80); PLATELET COUNT 94 10x3/uL (130-400); RBC 3.42 10x6/uL (4.00-5.40); RDW 21.9 % (11.5-14.5); WBC 4.7 10x3/uL (4.8-10.8)
[2017-03-17 06:23] LABS: MCV 106.7 fL (80.0-100.0)
[2017-03-17 06:37] LABS: ALBUMIN 1.2 g/dL (3.4-5.0); ALKALINE PHOSPHATASE 201 U/L (46-116); ALT (SGPT) 16 U/L (10-68); BILIRUBIN - TOTAL 0.79 mg/dL (0.2-1.3); CALC OSMOLALITY 278 mosm/kg (275-300); CALCIUM 7.4 mg/dL (8.5-10.1); CARBON DIOXIDE 20.3 mmol/L (21.0-32.0); CHLORIDE - SERUM 112 mmol/L (98-107); CREATININE - SERUM 0.4 mg/dL (0.6-1.3); GLUCOSE 139 mg/dL (74-106); MAGNESIUM - SERUM 1.5 mg/dL (1.8-2.4); PHOSPHOROUS 2.2 mg/dL (2.5-4.9); PROTEIN - SERUM 4.4 g/dL (6.4-8.2); SODIUM 141 mmol/L (136-145); eGFR NON AFRICAN AMERICAN > 90 mL/min (90-120)
[2017-03-17 06:38] LABS: UREA NITROGEN 2 mg/dL (7-18)
--- NOTE | 2017-03-17 07:53 | NUR ---
PLEASE CHANGE TO PORTABLE, PT IS NOT ABLE TO STAND
--- NOTE | 2017-03-17 09:01 | NUR ---
REC'D SITTING IN CHAIR IN ROOM AWAKE AND ALERT. RESP EVEN AND UNLABORED WITH NO DISTRESS NOTED. HAS O2 IN USE VIA N/C @ 2 L/M. DENIES ANY PAIN OR DISCOMFORT AT THIS TIME. ASSESSMENT COMPLETED. C/L IN REACH AT BEDSIDE.
--- NOTE | 2017-03-17 09:28 | NUR ---
PT CONTINUE TO TAKE OFF O2 WHICH WAS REPLACE BY THIS NURSE SEVERAL AND RT. PT HAS BEEN EDUCATED ON THE IMPORTANCE OF KEEPING HER O2 ON. C/L IN REACH AT BEDSIDE.
--- NOTE | 2017-03-17 11:08 | NUR ---
. PT CONTINUES TO TAKE OFF HER OXYGEN DEVICE. VERBALLY INSTRUCTED IMPORTANCE OF COMPLIANCE TO OXYGEN ADMINISTRATION PT VERBALLY AGREES TO COMPLY.
--- NOTE | 2017-03-17 11:45 | NUR ---
REC'D PT FROM FLOOR RAPID RESPONSE, CONNECTED PT TO SUPERVISOR CD AREA, PEA, CODE CALLED, SEE CODE FLOW SHEET.
[2017-03-17 12:23] LABS: BASOPHILS 0.1 % (0-2); EOSINOPHILS 0.3 % (0-7); HEMATOCRIT 35.9 % (36.0-48.0); HEMOGLOBIN 11.6 g/dL (12-16); IMMATURE GRANULOCYTES 0.9 % (0-5); LYMPHOCYTES 47.4 % (15-50); MCH 33.8 pg (26.0-34.0); MCHC 32.3 g/dL (31.0-37.0); MEAN PLATELET VOLUME 11.2 fL (7.4-10.4); MONOCYTES 5.9 % (2-11); NEUTROPHILS 45.4 % (40-80); RBC 3.43 10x6/uL (4.00-5.40); RDW 21.1 % (11.5-14.5)
[2017-03-17 12:30] LABS: MCV 104.7 fL (80.0-100.0); WBC 7.8 10x3/uL (4.8-10.8)
[2017-03-17 12:31] LABS: PLATELET COUNT 43 10x3/uL (130-400)
[2017-03-17 12:41] LABS: ALKALINE PHOSPHATASE 199 U/L (46-116); ALT (SGPT) 14 U/L (10-68); BILIRUBIN - TOTAL 0.65 mg/dL (0.2-1.3); CALCIUM 7.2 mg/dL (8.5-10.1); CARBON DIOXIDE 17.4 mmol/L (21.0-32.0); CHLORIDE - SERUM 113 mmol/L (98-107); PROTEIN - SERUM 4.4 g/dL (6.4-8.2); SODIUM 140 mmol/L (136-145)
[2017-03-17 12:43] LABS: CALC OSMOLALITY 282 mosm/kg (275-300); CREATININE - SERUM 0.6 mg/dL (0.6-1.3); GLUCOSE 224 mg/dL (74-106); UREA NITROGEN 3 mg/dL (7-18); eGFR NON AFRICAN AMERICAN > 90 mL/min (90-120)
[2017-03-17 12:54] LABS: PRO BNP 21194 pg/mL (0-125)
[2017-03-17 13:04] LABS: CKMB 1.4 U/L (0.0-3.6); CREATINE KINASE 64 UL (21-215); TROPONIN-I 0.178 ng/mL (0.000-0.060)
--- NOTE | 2017-03-17 13:20 | NUR ---
DR. RITTER RETURNED PAGE, INFORMED OF CONSULT, "WHAT ROOM IS SHE IN? IT WILL BE A LITTLE BIT, I AM IN CASES."
[2017-03-17 14:19] LABS: BASOPHILS 0.3 % (0-2); EOSINOPHILS 0.2 % (0-7); HEMATOCRIT 33.5 % (36.0-48.0); HEMOGLOBIN 10.9 g/dL (12-16); IMMATURE GRANULOCYTES 1.3 % (0-5); LYMPHOCYTES 19.7 % (15-50); MCH 34.5 pg (26.0-34.0); MCHC 32.5 g/dL (31.0-37.0); MEAN PLATELET VOLUME 11.6 fL (7.4-10.4); MONOCYTES 7.6 % (2-11); NEUTROPHILS 70.9 % (40-80); RBC 3.16 10x6/uL (4.00-5.40); RDW 21.2 % (11.5-14.5); WBC 6.1 10x3/uL (4.8-10.8)
[2017-03-17 14:33] LABS: PLATELET COUNT 66 10x3/uL (130-400)
[2017-03-17 15:49] LABS: APPEARANCE HAZY (CLEAR); COLOR YELLOW (YELLOW); NITRITE NEGATIVE (NEGATIVE)
[2017-03-17 15:50] LABS: BILIRUBIN NEGATIVE (NEGATIVE); GLUCOSE NEGATIVE (NEGATIVE); KETONE NEGATIVE (NEGATIVE); PROTEIN TRACE mg/dL (NEGATIVE); UROBILINOGEN NORMAL (NORMAL)
[2017-03-17 15:51] LABS: WHITE CELLS - URINE 0-5 /hpf (0-5)
[2017-03-17 15:52] LABS: BACTERIA FEW /hpf (NONE SEEN); EPITHELIAL CELLS OCC /hpf (0-5)
--- NOTE | 2017-03-17 16:00 | NUR ---
TRANSFERRED PT TO CT, RT AT THE BEDSIDE, WILL CONTINUE TO MONITOR PT.
--- NOTE | 2017-03-17 16:17 | NUR ---
REC'D PT FROM CT, CONNECTED TO JIG INSPECTOR, WILL CONTINUE TO MONITOR PT.
--- NOTE | 2017-03-17 17:00 | NUR ---
DR. SPIVEY AT THE BEDSIDE SPEAKING WITH FAMILY.
[2017-03-18] VITALS (86 sets, daily range): BP systolic 82–149; BP diastolic 46–89
[2017-03-18 04:11] LABS: BASOPHILS 0.5 % (0-2); EOSINOPHILS 0.2 % (0-7); HEMATOCRIT 36.8 % (36.0-48.0); HEMOGLOBIN 12.1 g/dL (12-16); LYMPHOCYTES 22.6 % (15-50); MCH 34.8 pg (26.0-34.0); MCHC 32.9 g/dL (31.0-37.0); MCV 105.7 fL (80.0-100.0); MEAN PLATELET VOLUME 11.9 fL (7.4-10.4); MONOCYTES 8.9 % (2-11); NEUTROPHILS 66.8 % (40-80); RBC 3.48 10x6/uL (4.00-5.40); RDW 21.6 % (11.5-14.5); WBC 6.1 10x3/uL (4.8-10.8)
[2017-03-18 04:21] LABS: ALKALINE PHOSPHATASE 177 U/L (46-116); ALT (SGPT) 16 U/L (10-68); BILIRUBIN - TOTAL 1.23 mg/dL (0.2-1.3); CARBON DIOXIDE 19.5 mmol/L (21.0-32.0); CHLORIDE - SERUM 111 mmol/L (98-107); CREATININE - SERUM 0.6 mg/dL (0.6-1.3); GLUCOSE 234 mg/dL (74-106); MAGNESIUM - SERUM 1.4 mg/dL (1.8-2.4); PROTEIN - SERUM 4.4 g/dL (6.4-8.2); SODIUM 143 mmol/L (136-145); eGFR NON AFRICAN AMERICAN > 90 mL/min (90-120)
[2017-03-18 04:27] LABS: CALC OSMOLALITY 289 mosm/kg (275-300); PHOSPHOROUS 2.8 mg/dL (2.5-4.9); PLATELET COUNT 48 10x3/uL (130-400); POTASSIUM - SERUM 4.4 mmol/L (3.5-5.1); UREA NITROGEN 4 mg/dL (7-18)
--- NOTE | 2017-03-18 07:00 | NUR ---
PT REPORT REC'D, PT CARE ASSUMED. PT SEDATED ON VENT. HAUSER CATHETER FREE OF KINKS TO GRAVITY WITH URINE RETURN. LEFT SUBCLAVIAN CVL WITH FLUIDS INFUSING, SEE FLOW SHEET. ROOM FREE OF CLUTTER, CALL LIGHT IN REACH, BED ALARM ACTIVE, WILL CONTINUE TO MONITOR PT.
--- NOTE | 2017-03-18 08:36 | NUR ---
PT FAMILY AT THE BEDSIDE, ALL QUESTIONS ANSWERED, VSS, WILL CONTINUE TO MONITOR PT.
--- NOTE | 2017-03-18 09:40 | OP ---
PATIENT NAME: KINGSLEY BASHIR MEDICAL RECORD: [id number] :64 LOCATION:.[facility] D.2310 ADMISSION DATE:03/10/17 SURGEON: ANGELICA WOODSON MD DATE OF OPERATION: 03/14/2017 PREOPERATIVE DIAGNOSES: 1. Scleroderma. 2. Dysphagia. 3. Weight loss. 4. Acute malnutrition. POSTOPERATIVE DIAGNOSES: 1. Scleroderma. 2. Dysphagia. 3. Weight loss. 4. Acute malnutrition. 5. Intact TIF fixation devices. PROCEDURES: 1. Esophagogastroduodenoscopy with antral biopsies. 2. Percutaneous endoscopic gastrostomy tube placement, 20 [place]. SURGEON: Angelica Woodson MD MUFFLE WORKER: None. BLOOD LOSS: Minimal. ANESTHESIA: Local with IV sedation. COMPLICATIONS: None. The risks, possible complications, and alternatives to the procedure were explained to the patient. She elects to proceed. The discussion specifically included, but was not limited to, bleeding requiring emergency reoperation, infection, intestinal injury as well as the need for an open procedure in the future. OPERATIVE COURSE: The patient was conveyed to the GI lab electively on 03/14/2017. IV sedation was induced by the anesthesia staff. The patient was placed in the reverse Trendelenburg position. The abdomen was sterilely prepped and draped. A bite block was inserted. A gastroscope was inserted into the mouth. It was advanced easily into the hypopharynx. The esophagus was easily intubated as were the stomach and duodenum. Upon withdrawal, retroflexed and angulus views were obtained. Antral biopsies were obtained. I cleansed the anterior abdominal wall skin. I indented the skin and visualized this endoscopically. A local anesthetic was used to infiltrate the skin and subcutaneous tissues at the site of the insertion of the feeding tube. A small skin eleanor was accomplished. An endoscopic snare was advanced down through the endoscope. Through the skin incision in the abdomen, I advanced Angiocath and punctured the stomach on the anterior aspect along the greater curve. I advanced a guidewire. This was grasped with an endoscopic snare and the guidewire was withdrawn out through the mouth. The guidewire was attached to a OPERATIVE REPORT [id number] KINGSLEY BASHIR pull-type gastrostomy tube, which was then pulled into place. I then re-endoscoped the patient's esophagus and stomach. There had been no false passage or perforation. There was some retained food material within the esophagus. The endoscope was withdrawn under direct vision. Hub and flange devices were attached. The patient was then conveyed back to her room. TRANSINT:[id number] Voice Confirmation ID: [id number] DOCUMENT ID: [id number] ANGELICA WOODSON MD at 0940 CC: KRANTHI BEGUM DO, WALESKA VELIZ MD, BAYLEE TSAI and [id number] DICTATION DATE: 03/14/17 1008 DIRECTOR OF FINANCIAL AID: 03/14/[address] [facility] [address] [id number]
--- NOTE | 2017-03-18 09:40 | PN ---
PATIENT:KINGSLEY BASHIR MEDICAL RECORD: [id number] LOCATION:.[facility] D.231 ADMISSION DATE: 03/10/17 PROGRESS NOTE DATE OF SERVICE: 03/12/2017 ADDENDUM CHIEF COMPLAINT: "I am undergoing tests." It is my understanding that the patient is to undergo a small bowel follow through as well as upper GI to determine where the best place could be to place a feeding tube. It is my understanding she has a gastrostomy tube or jejunostomy tube in her future. She appears chronically malnourished. She has had dysphagia. She is being seen by Dr. Wu. I will await further instructions from them with regard to what type of feeding tube is going to be needed. Swallowing aggravates. Nothing alleviates. For the typed portion of the progress note, please see the chart. This will include the past medical and surgical history, allergies, current medications, family history as well as social history. REVIEW OF SYSTEMS: Positive for nausea. No fever, no chills. Positive for weight loss. Positive for dysphagia. PHYSICAL EXAMINATION: GENERAL: The patient appears acutely ill. She also appears chronically ill. The entire physical examination was performed in the presence of a female nurse. VITAL SIGNS: Reviewed. HEENT: Ears; external ears appear normal. Eyes; extraocular movements are intact. NECK: Trachea is midline. CHEST: No intercostal retractions. PULMONARY: Nonlabored, no stridor. ABDOMEN: No peritonitis with movement. EXTREMITIES: No peripheral cyanosis. INTEGUMENT: No rash, no ulcerations. PSYCHIATRIC: Normal affect. NEUROLOGIC: Nonfocal, no lethargy. The patient answers questions appropriately, moves all extremities well. IMPRESSION: 1. Dysphagia. 2. Weight loss. 3. Chronic malnutrition. PLAN: G-tube or placement of a J-tube sometime in the future for enteral feedings. TRANSINT:[id number] Voice Confirmation ID: [id number] DOCUMENT ID: [id number] PROGRESS NOTE [id number] BASHIR,LISA ANGELICA RICHARD MD at 0940 CC: [id number] DICTATION DATE: 03/12/17 1820 CORPORATE STRATEGY ASSOCIATE: 03/13/17 0950 ADM IN [address] [place] [address]
--- NOTE | 2017-03-18 09:40 | CN ---
PATIENT NAME:KINGSLEY BASHIR MEDICAL RECORD: [id number] : 64 LOCATION:[facility].2310 ADMIT DATE: 03/10/17 ACCOUNT: [id number] CONSULTING PHYSICIAN: ANGELICA WOODSON MD REFERRING PHYSICIAN: KRANTHI BEGUM DO DATE OF CONSULTATION: 03/11/2017 ADDENDUM CHIEF COMPLAINT: Pain. CLINICAL HISTORY: This patient is familiar to me. I have performed an upper endoscopy on her in the past. I have also treated her for what apparently was a small-bowel obstruction. The patient now presents with abdominal pain. It is located in the epigastrium as well as the right upper quadrant and in the periumbilical area. She has undergone a cholecystectomy in the past. She is uncertain who performed the cholecystectomy. I cannot find a cholecystectomy record in the computer system. The symptoms came on gradually. They are increasing in intensity. The patient has had some subjective fever at home. The gastroenterology service has been asked to see the patient in consultation. I personally discussed this case with Dr. Montoya. Palpation aggravates. Nothing alleviates. The symptoms radiate around to the back. This is a consultation note addendum. For the typed portion of the consult note, please see the chart. This would include the past medical and surgical history, allergies, social history, family history, as well as current medications. REVIEW OF SYSTEMS: Positive for nausea, positive for weight loss, positive for fatigue, positive for abdominal pain, and also positive for subjective fever. The review of systems is negative other than as is described above. PHYSICAL EXAMINATION: GENERAL: The patient appears acutely ill. Also, appears chronically ill. VITAL SIGNS: Reviewed. EARS: External ears appear normal. EYES: Extraocular movements are intact. There is no scleral icterus. NECK: Trachea is midline. CHEST: No intercostal retractions. PULMONARY: Nonlabored, no stridor. ABDOMEN: Tenderness as described above. No peritonitis to percussion. EXTREMITIES: No peripheral cyanosis. PSYCHIATRIC: Anxious affect. NEUROLOGIC: Answers questions appropriately. BACK: No thoracic kyphosis. LYMPHATICS: No lymphangitic streaking of the exposed extremities. X-RAY DATA: I personally reviewed the x-ray images, which were computed tomography images. I personally reviewed the computed tomography report. IMPRESSION: Colitis of uncertain etiology. PLAN: Gastroenterology consultation. Clostridium difficile titers are pending. CONSULT REPORT [id number] BASHIRKINGSLEY ARMSTRONG TRANSINT:[id number] Voice Confirmation ID: [id number] DOCUMENT ID: [id number] ANGELICA WOODSON MD at 0940 CC: [id number] DICTATION DATE: 03/11/171916 REAL ESTATE OFFICER: 03/11/171952 ADM IN [address] [address] [place] [address]
--- NOTE | 2017-03-18 09:40 | PN ---
PATIENT:KINGSLEY BASHIR MEDICAL RECORD: [id number] LOCATION:[facility] D.231 ADMISSION DATE: 03/10/17 PROGRESS NOTE DATE OF SERVICE: 03/13/2017 CHIEF COMPLAINT: Better. She is feeling somewhat better today. Her family is with her and emotionally I think she is feeling better. I have reviewed her upper gastrointestinal study. It revealed a lack of normal esophageal primary and secondary contractions and this is in keeping with the history of scleroderma. The stomach appeared relatively unremarkable. No hiatal hernia was noted. No reflux was elicited. I think we can place a gastrostomy tube rather than a more distal tube such as a J-tube. The risks, possible complications, and alternatives to the procedure were explained to the patient. She elects to proceed. The discussion specifically included, but was not limited to, bleeding requiring emergency reoperation, infection, intestinal injury as well as the possibility of early dislodgement of the feeding tube. Symptoms are difficult to characterize. She is fatigued. Nothing aggravates. Nothing alleviates. This is a progress note addendum. For the typed portion of the progress note, please see the chart. This would include the past medical and surgical history, current medications, allergies, social history, as well as family history. REVIEW OF SYSTEMS: Positive for fatigue. No shortness of breath, no chest pain, no nausea, no vomiting, no fever, no chills. Some epigastric abdominal pain. The review of systems is negative other than as is described above. PHYSICAL EXAMINATION: GENERAL: The patient does not appear acutely ill. She does appear chronically ill. VITAL SIGNS: Reviewed. EARS: External ears appear normal. EYES: Extraocular movements are intact. NECK: Trachea is midline. CHEST: No intercostal retractions. PULMONARY: Nonlabored, no stridor. ABDOMEN: No peritonitis with movement. EXTREMITIES: No peripheral cyanosis. INTEGUMENT: No rash. PSYCHIATRIC: Anxious affect. NEUROLOGIC: Answers questions appropriately. BACK: No thoracic kyphosis. LYMPHATIC: No lymphangitic streaking of the exposed extremities. IMPRESSION: 1. Acute malnutrition. 2. Dysphagia. 3. Weight loss. PLAN: EGD with PEG tomorrow. PROGRESS NOTE [id number] KINGSLEY BASHIR TRANSINT:[id number] Voice Confirmation ID: [id number] DOCUMENT ID: [id number] ANGELICA WOODSON MD at 0940 CC: [id number] DICTATION DATE: 03/14/1727 PATRIOT MISSILE [employer] DEFENSE ARTILLERY: 03/14/17 1139 ADM IN [facility] [address] [place] [address]
--- NOTE | 2017-03-18 09:49 | NUR ---
NUTRITION F/U PT NOW ON VENT IN ICU. TUBE FEEDS CURRENTLY OFF. WILL PROVIDE OSMOLITE WHEN TUBE FEEDS RESUMED, MONITOR PT PROGRESS. RD FOLLOWING
--- NOTE | 2017-03-18 10:30 | NUR ---
DR. SPIVEY AND DR. RINCON AT THE BEDSIDE.
--- NOTE | 2017-03-18 11:00 | NUR ---
PT HAD BM, PARTIAL LINEN CHANGE COMPLETED, REPOSITIONED PT, PROPPED WITH PILLOWS, REASSESSMENT COMPLETED, SEE FLOW SHEET. ROOM FREE OF CLUTTER, CALL LIGHT IN REACH, BED ALARM ACTIVE, WILL CONTINUE TO MONITOR PT.
--- NOTE | 2017-03-18 12:16 | NUR ---
SPOKE WITH DR. SPIVEY PER PRE OP MEDS, NO MEDICATIONS WANTED, NENA SENT WITH PT TO COMPUTER DESIGNER
--- NOTE | 2017-03-18 12:27 | NUR ---
PT TRANSFERRED VIA BED TO SUPERVISOR PLASTERING
--- NOTE | 2017-03-18 12:30 | NUR ---
PT REPORT TO ELISABET PERSAUD RN.
--- NOTE | 2017-03-18 13:51 | NUR ---
PATIENT RECEIVED BACK FROM RN TRIAGE. VASOPRESSIN INFUSING AT 0.033 UNITS/MIN, LEVOPHED INFUSING AT 30MCG/MIN, DIPROVAN AT 35 MCG/MIN, AND NS AT 10ML/HR. BEAR HUGGER PLACED ON PATIENT. CM REVEALS ST WITH ST ELEVATION NOTED AT 140'S. HAUSER INTACT WITH ANA URINE NOTED. PATIENT IS ON VENT WITH SETTINGS OF AC, TV-550, RR-16, PEEP 5, FIO2-100%. WILL CONTINUE TO MONITOR PATIENT AT THIS TIME.
--- NOTE | 2017-03-18 14:15 | NUR ---
A-LINE CONNECTED AND ZEROED BP READING OF 126/84 (97). SAND BAG PLACED ON RIGHT GROIN AREA DUE TO SEROSANGUENOUS FLUID LEAKING FROM SITE.
--- NOTE | 2017-03-18 14:51 | OP ---
PATIENT NAME: KINGSLEY BASHIR MEDICAL RECORD: [id number] :64 LOCATION:D.[facility] D.2310 ADMISSION DATE:03/10/17 SURGEON: ELIZABETH COTA MD DATE OF OPERATION: 03/17/2017 PREOPERATIVE DIAGNOSES: 1. Respiratory failure, on a ventilator. 2. Metabolic acidosis. 3. Lactic acidosis. 4. Colitis. 5. Scleroderma. POSTOPERATIVE DIAGNOSES: 1. Respiratory failure, on a ventilator. 2. Metabolic acidosis. 3. Lactic acidosis. 4. Colitis. 5. Scleroderma. PROCEDURE: Left subclavian vein triple-lumen central venous line placement. SURGEON: Elizabeth Cota MD REPORT OF PROCEDURE: The left chest was prepped and draped in sterile fashion, 3 cc of 1% lidocaine was infused into the surrounding tissues. A needle was used to cannulate the left subclavian vein. The guidewire was advanced with ease. Over this wire, a dilator was placed followed by the triple lumen catheter. The catheter aspirated nonpulsatile dark blood and flushed easily in all 3 ports. This was sutured into place with 3-0 silk ties and dressed appropriately. COMPLICATIONS: None. CONDITION: Critical. ANESTHESIA: General endotracheal and local. BLOOD LOSS: Minimal. TRANSINT:[id number] Voice Confirmation ID: [id number] DOCUMENT ID: [id number] ELIZABETH COTA MD at 1451 CC: [id number] DICTATION DATE: 03/17/17 1358 LOADING DOCK HELPER: 03/17/17 1430 ADM IN [id number] [place] [address]
--- NOTE | 2017-03-18 15:01 | NUR ---
UNABLE TO DETECT SPO2 ON PATIENT AFTER MOVING AND CHANGING SPO2 DEVICES MULTIPLE TIMES. PATIENT'S HANDS ARE MOTTLED AND COOL TO TOUCH.
[2017-03-18 15:11] LABS: BASOPHILS 0.2 % (0-2); EOSINOPHILS 0.2 % (0-7); HEMATOCRIT 34.6 % (36.0-48.0); HEMOGLOBIN 11.6 g/dL (12-16); IMMATURE GRANULOCYTES 1.4 % (0-5); LYMPHOCYTES 22.4 % (15-50); MCH 34.2 pg (26.0-34.0); MCHC 33.5 g/dL (31.0-37.0); MCV 102.1 fL (80.0-100.0); MEAN PLATELET VOLUME 12.1 fL (7.4-10.4); MONOCYTES 5.1 % (2-11); NEUTROPHILS 70.7 % (40-80); RBC 3.39 10x6/uL (4.00-5.40); RDW 20.7 % (11.5-14.5); WBC 6.5 10x3/uL (4.8-10.8)
[2017-03-18 15:12] LABS: PLATELET COUNT 27 10x3/uL (130-400)
[2017-03-18 15:22] LABS: CALC OSMOLALITY 282 mosm/kg (275-300); CARBON DIOXIDE 22.4 mmol/L (21.0-32.0); CHLORIDE - SERUM 109 mmol/L (98-107); CREATININE - SERUM 0.7 mg/dL (0.6-1.3); GLUCOSE 192 mg/dL (74-106); SODIUM 141 mmol/L (136-145); UREA NITROGEN 5 mg/dL (7-18); eGFR NON AFRICAN AMERICAN > 90 mL/min (90-120)
[2017-03-18 15:26] LABS: POTASSIUM - SERUM 3.7 mmol/L (3.5-5.1)
--- NOTE | 2017-03-18 16:42 | NUR ---
DR. SPIVEY HERE IN TO SEE PATIENT. NEW ORDER RECEIVED FOR LASIX.
--- NOTE | 2017-03-18 17:30 | NUR ---
DR. BEGUM AND DR. SPIVEY HERE IN TO SEE PATIENT. DR. SPIVEY IN TO SEE PATIENT AND SPOKE WITH FAMILY. DR. HERNANDEZ CONSULTED.
--- NOTE | 2017-03-18 17:37 | NUR ---
DR. HERNANDEZ HERE IN TO SEE PATIENT.
--- NOTE | 2017-03-18 19:17 | NUR ---
CALLED DR. SPIVEY ABOUT URINE OUTPUT. NEW ORDER RECEIVED TO STOP BICARB GTT AT THIS TIME AND DO BLOOD GAS IN ONE HOUR.
--- NOTE | 2017-03-18 19:30 | NUR ---
ASSESSMENT COMPLETE. S1S2. SINUS TACHYCARDIA SHOWING ON MONITOR. MECHANICAL VENT; RR CRACKLES BILATERALLY IN UPPER LOBES; DIMINISHED BILATERALLY IN LOWER LOBES. SKIN PALE; MOTTLED. BEAR HUGGER IN PLACE. PEG TO ABD; HAUSER CATH IN PLACE. RADIAL AND PEDAL PULSES WEAK. 3+ PITTING EDEMA; GENERALIZED; WEEPING TO ENTIRE BODY. EDEMA NOTED TO PERIORBITALS. PERRLA; 2MM BRISK. SKIN DISCOLORATION NOTED TO HANDS/FEET.
--- NOTE | 2017-03-18 19:52 | NUR ---
DR. SPIVEY NOTIFIED OF PATIENTS BP DECREASING. ABG ORDER FOR NOW AND ORDER TO START DOPAMINE AT 5MCG/KG/MIN NOT TO EXCEED 10MCG/KG/MIN.
--- NOTE | 2017-03-18 20:49 | NUR ---
DR. SPIVEY NOTIFIED OF PATIENT CONDITION AT THIS TIME. ORDERED TO INCREASE DOPAMINE BACK TO 3MCG/KG/MIN FOR CONTINUOUS RATE.
--- NOTE | 2017-03-18 21:00 | NUR ---
SPOKE WITH DR. RAZA. ORDERS RECEIVED.
--- NOTE | 2017-03-18 23:05 | NUR ---
SPOKE WITH DR. SPIVEY. UPDATED ON PT CONDITION. ORDERS TO DECREASE BICARB TO 50CC/HR.
--- NOTE | 2017-03-18 23:30 | NUR ---
REASSESSMENT COMPLETE. NO ACUTE CHANGES FROM PREVIOUS ASSESSMENT. SEE FLOW SHEETS FOR DETAILS.
--- NOTE | 2017-03-18 23:50 | NUR ---
SPOKE WITH DR. SPIVEY. ORDERS RECEIVED. DECREASE BICARB TO 25CC/HR.
[2017-03-19] VITALS (95 sets, daily range): BP systolic 80–131; BP diastolic 46–90
--- NOTE | 2017-03-19 01:30 | NUR ---
PT SEDATED ON VENT. VSS. NO DISTRESS NOTED. MONITORING CLOSELY. Q1H UOP CHECKS; Q1H BLOOD GASES. WILL CONTINUE PLAN OF CARE.
--- NOTE | 2017-03-19 03:13 | NUR ---
REASSESSMENT COMPLETE. NO ACUTE CHANGES FROM PREVIOUS ASSESSMENT. MONITORING CLOSELY.
[2017-03-19 04:55] LABS: BASOPHILS 0.2 % (0-2); EOSINOPHILS 0 % (0-7); HEMATOCRIT 32.4 % (36.0-48.0); IMMATURE GRANULOCYTES 0.9 % (0-5); LYMPHOCYTES 14.4 % (15-50); MCH 34.6 pg (26.0-34.0); MCV 101.9 fL (80.0-100.0); MONOCYTES 4.6 % (2-11); NEUTROPHILS 79.9 % (40-80); RBC 3.18 10x6/uL (4.00-5.40); RDW 20.6 % (11.5-14.5); WBC 5.6 10x3/uL (4.8-10.8)
[2017-03-19 05:07] LABS: PLATELET COUNT 22 10x3/uL (130-400)
--- NOTE | 2017-03-19 05:14 | NUR ---
PT HAS GENERALIZED WEEPING EDEMA. LINENS CHANGED.
[2017-03-19 06:43] LABS: ALKALINE PHOSPHATASE 133 U/L (46-116); ALT (SGPT) 18 U/L (10-68); CHLORIDE - SERUM 110 mmol/L (98-107); CREATININE - SERUM 0.8 mg/dL (0.6-1.3); GLUCOSE 157 mg/dL (74-106); POTASSIUM - SERUM 3.8 mmol/L (3.5-5.1); PROTEIN - SERUM 4.3 g/dL (6.4-8.2); SODIUM 142 mmol/L (136-145); eGFR NON AFRICAN AMERICAN 79 mL/min (90-120)
[2017-03-19 06:44] LABS: ALBUMIN 1.5 g/dL (3.4-5.0); CALC OSMOLALITY 283 mosm/kg (275-300); UREA NITROGEN 7 mg/dL (7-18)
[2017-03-19 06:45] LABS: CALCIUM 6.9 mg/dL (8.5-10.1)
--- NOTE | 2017-03-19 07:30 | NUR ---
SHIFT ASSESSMENT VIA FLOWSHEET, SEE FOR DETAILS.
--- NOTE | 2017-03-19 09:15 | NUR ---
PT'S FAMILY AT BEDSIDE, UPDATE PROVIDED AND ALL QUESTIONS ANSWERED.
--- NOTE | 2017-03-19 09:40 | NUR ---
VANC TROUGH DRAWN FROM CVL PER PROTOCOL AND TAKEN TO LAB.
--- NOTE | 2017-03-19 10:10 | NUR ---
FAMILY AT BEDSIDE, UPDATED BY DR RINCON.
--- NOTE | 2017-03-19 10:15 | NUR ---
SPOKE WITH DR SPIVEY VIA PHONE, NEW ORDERS RECEIVED.
--- NOTE | 2017-03-19 10:29 | NUR ---
AT 1015 DR. RINCON DECREASED THE FIO2 FROM 100% TO 80%.
--- NOTE | 2017-03-19 11:10 | NUR ---
SPOKE WITH EUNICE WASHINGTON, SUMA D REGARDING PT'S VANC TROUGH. WILL HOLD DOSE AND RECHECK VALUE IN THE AM.
--- NOTE | 2017-03-19 11:30 | NUR ---
REASSESSMENT VIA FLOWSHEET, SEE FOR DETAILS.
--- NOTE | 2017-03-19 11:45 | NUR ---
INITIATED INFUSION ONE UNIT PLT PER ORDER. 1200- NO SIGN OF TRANSFUSION REACTION NOTED.
--- NOTE | 2017-03-19 12:12 | CN ---
PATIENT NAME:KINGSLEY BASHIR MEDICAL RECORD: [id number] : 64 LOCATION:[facility].2310 ADMIT DATE: 03/10/17 ACCOUNT: [id number] CONSULTING PHYSICIAN: MAYCO RINCON MD REFERRING PHYSICIAN: KRANTHI BEGUM DO DATE OF CONSULTATION: 03/17/2017 CONSULT REQUESTING PHYSICIAN: Kranthi Begum DO REASON FOR CONSULTATION: Vent management, cardiopulmonary arrest. HISTORY OF PRESENT ILLNESS: Ms. Bashir is a 56-year-old female. She was admitted on 03/10/2017 with nausea, vomiting, and electrolyte abnormalities. The CT scan of the abdomen showed the patient has colitis. She was given IV fluid. This morning, a rapid response was called. The patient was transferred to the ICU. In the ICU, the patient went into pulseless electrical activity with no blood pressure. Code blue was called. The patient was resuscitated and orally intubated. REVIEW OF SYSTEMS: The detail is not obtainable. PAST MEDICAL HISTORY: 1. Raynaud's disease. 2. Dysphagia. 3. Gastroesophageal reflux disease. 4. Anorexia. PAST SURGICAL HISTORY: 1. Urethral dilatation as a child. 2. Cholecystectomy. 3. Liver biopsy in 2015. 4. Laparoscopic cholecystectomy and TIF. ALLERGIES: SHE IS ALLERGIC TO ROCEPHIN. MEDICATIONS: On [employer] was reviewed. PERSONAL AND SOCIAL HISTORY: The patient is a nonsmoker, nondrinker. FAMILY HISTORY: Significant for parents had cardiovascular diseases. PHYSICAL EXAMINATION: GENERAL: Now, the patient is orally intubated and sedated. The patient was tended and code blue. VITAL SIGNS: Blood pressure was in 40s. Heart rate was 120 to 130. The SpO2 was not obtainable. HEENT: Conjunctivae are pink. Sclerae nonicteric. NECK: Supple, no JVD. CHEST: There are bilateral crackles. No wheezing. HEART: Rate and rhythm regular, normal sound, no murmur. ABDOMEN: Soft. Bowel sounds are muffled. RECTAL: Deferred. EXTREMITIES: No cyanosis, no clubbing. There is 2+ pedal edema. SKIN: Warm, normal turgor. CENTRAL NERVOUS SYSTEM: The patient is in code blue and unresponsive. CONSULT REPORT [id number] KINGSLEY BASHIR LABORATORY DATA: CBC: The WBC is 7.8, hemoglobin 11.6, hematocrit 35.9, and the platelet count is 43. Chemistry: Sodium is 140, potassium is 6, chloride 113, bicarbonate 17.4, magnesium is 1.5. Liver enzyme within normal range. The proBNP is 21,194. Troponin is 0.178. ABG: The pH was 7.01, pCO2 62.3, the pO2 was 57, bicarb is 16. The lactic acid level was at 5. CHEST RADIOGRAPH: The ET tube is in good position. There are bilateral interstitial infiltrates: CT scan of the chest: There is infiltrate in the upper lobes. There is bilateral qhcavsxv-pj-bslqw sized pleural effusion. There was no evidence of pulmonary embolism. There is also abdominal ascites. IMPRESSION: 1. Cardiopulmonary arrest with pulseless electrical activity. 2. Rule out acute coronary syndrome, acute respiratory failure secondary to cardiopulmonary arrest with pulseless electrical activity, respiratory and metabolic acidosis secondary to cardiopulmonary arrest with pulseless electrical activity. 3. Pneumonia, bilateral, possible aspiration pneumonia for possible acute lung injury and acute respiratory distress syndrome. 4. Acute colitis. 5. Acute nausea and vomiting secondary to acute colitis. 6. Anemia, possibly secondary to gastrointestinal bleed. 7. Pulmonary edema, elevated BNP and bilateral possible diastolic dysfunction. 8. Elevated cardiac enzyme. 9. Hyperkalemia, most likely secondary to acidosis. 10. Gastroesophageal reflux disease. 11. Dysphagia. 12. Raynaud's disease. RECOMMENDATION: 1. We will continue mechanical ventilation, adjust the setting. 2. GI and stress ulcer prevention. 3. Deep vein thrombosis prophylaxis. 4. Fluid resuscitation. 5. Pressor, start Levophed and titrate to systolic blood pressure above 90. 6. Start on bicarb drip. 7. We will follow the septic protocol. Keep the CVP 10 to 12. 8. Continue Levaquin. Start on meropenem and vancomycin. 9. Follow up labs and chest radiograph. I discussed in length with the patient's family. The critical care time [address] Begum, thank you for involving me in the care of Ms. Bashir. TRANSINT:[id number] Voice Confirmation ID: [id number] DOCUMENT ID: [id number] CONSULT REPORT [id number] KINGSLEY BASHIR,MAYCO BLAIR at 1212 CC: KRANTHI BEGUM DO [id number] DICTATION DATE: 03/17/17 1344 LEAD JAVA J2EE DEVELOPER: 03/17/17 1456 ADM IN [facility] [address] [id number]
[2017-03-19 12:16] LABS: CALCIUM 7.3 mg/dL (8.5-10.1); MAGNESIUM - SERUM 2.9 mg/dL (1.8-2.4); POTASSIUM - SERUM 4.2 mmol/L (3.5-5.1)
--- NOTE | 2017-03-19 12:27 | NUR ---
LAB VALUES REPORTED TO DR SPIVEY, ORDER RECEIVED FOR 1 AMP CALCIUM GLUCONATE.
--- NOTE | 2017-03-19 12:30 | NUR ---
INFUSION ONE UNIT PLT COMPLETE.
--- NOTE | 2017-03-19 12:50 | NUR ---
SPOKE WITH DR SPIVEY VIA PHONE, NEW ORDERS RECEIVED.
--- NOTE | 2017-03-19 13:15 | NUR ---
FAMILY UPDATED BY BEBA PADGETT RN REGARDING PT SITUATION.
--- NOTE | 2017-03-19 15:30 | NUR ---
SHIFT ASSESSMENT VIA FLOWSHEET, SEE FOR DETAILS.
--- NOTE | 2017-03-19 16:27 | NUR ---
DR SPIVEY HERE TO SEE PT. RR PER VENT INCREASED TO 25. FAMILY UPDATED BY DR SPIVEY.
[2017-03-19 17:11] LABS: PLT AB - HLA CLASS 1 Negative (Negative); PLT AB - IIb IIIa Negative (Negative); PLT AB - Ia IIa Negative (Negative); PLT AB - Ib IX Negative (Negative)
--- NOTE | 2017-03-19 19:00 | NUR ---
REPORT RECIEVED. ASSESSMENT COMPLETE PER FLOW SHEET. REFER FOR FINDINGS. NURSE AT BEDSIDE
--- NOTE | 2017-03-19 21:00 | NUR ---
FAMILY AT BEDSIDE GIVEN UPDATE
--- NOTE | 2017-03-19 21:20 | NUR ---
DR SPIVEY CALLED GIVEN UPDATE. NO NEW ORDERS AT THIS TIME. WILL CONTINUE TO MONITOR
--- NOTE | 2017-03-19 21:45 | NUR ---
LEVOPHED TURNED OFF
[2017-03-19 21:47] LABS: CREATININE - SERUM 1.1 mg/dL (0.6-1.3)
--- NOTE | 2017-03-19 22:24 | NUR ---
DOPAMINE TURNED DOWN TO 5 MCG/KG/MIN BP VIA R GROIN ART WILL CONTINUE TO MONITOR
--- NOTE | 2017-03-19 23:15 | NUR ---
REASSESSMENT COMPLETE PER FLOW SHEET. VSS NO NEW CHANGES AT THIS TIME. WILL CONTINUE TO MONITOR
[2017-03-20] VITALS (45 sets, daily range): BP systolic 24–100; BP diastolic 20–74
--- NOTE | 2017-03-20 01:20 | NUR ---
BB LINEN CHANGE ADM. SMALL LOOSE BM NOTED. NEEDS MET.
--- NOTE | 2017-03-20 03:10 | NUR ---
REASSESSMENT COMPLETE PER FLOW SHEET. VSS. RESTRAINTS REMOVED. NO NEW CHANGES. WILL CONTINUE TO MONITOR
--- NOTE | 2017-03-20 05:00 | NUR ---
FAMILY AT BEDSIDE GIVEN UPATE
[2017-03-20 05:50] LABS: BASOPHILS 0.1 % (0-2); EOSINOPHILS 0 % (0-7); HEMATOCRIT 28.9 % (36.0-48.0); IMMATURE GRANULOCYTES 0.5 % (0-5); MCH 33.6 pg (26.0-34.0); MCHC 34.6 g/dL (31.0-37.0); MEAN PLATELET VOLUME 9.7 fL (7.4-10.4); MONOCYTES 2.5 % (2-11); NEUTROPHILS 72.9 % (40-80); RBC 2.98 10x6/uL (4.00-5.40); RDW 21.7 % (11.5-14.5)
[2017-03-20 06:12] LABS: BILIRUBIN - TOTAL 5.1 mg/dL (0.2-1.3); CALCIUM 7.2 mg/dL (8.5-10.1); CARBON DIOXIDE 17.6 mmol/L (21.0-32.0); CREATININE - SERUM 1.1 mg/dL (0.6-1.3); PROTEIN - SERUM 4.1 g/dL (6.4-8.2)
[2017-03-20 06:22] LABS: ANION GAP 18.7 mmol/L (8-16); POTASSIUM - SERUM 3.3 mmol/L (3.5-5.1)
[2017-03-20 06:30] LABS: PLATELET COUNT 23 10x3/uL (130-400); WBC 7.3 10x3/uL (4.8-10.8)
--- NOTE | 2017-03-20 06:43 | NUR ---
DR BEGUM AT BEDSIDE. FAMILY MEMBER NOT IN WAITING AREA. WILL UPDATE
--- NOTE | 2017-03-20 14:06 | NUR ---
0760 INITIAL PT ASSESMENT IS COMPLETE .. PT IS SEDATED ON VENT ORALLY INTUBATED.. SEE FLOW SHEET FOR FINDINGS.. PT IS NOT RESPONSIVE TO VERBAL OR TACTILE STIMULI.. DR CORREA IN TO SEE PT UPDATE GIEVN.. 0750 DR STAPLETON IN TO SEE PT ... DR STAPLETON SPEAKING WITH FAMILY OUTSIDE OF THE PT ROOM RE PT STATUS.. PT SISTERS ARE VERY ANGRY AND DEMANDING TO KNOW HOW THE PATIENT HAS GOTTEN TO THIS POINT.. 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 DR CORREA IN UNIT AND STARTED SPEAKING WITH FAMILY ALSO ... UPDATE GIVEVN TO THE FAMILY AND THE GRIM PROGNOSIS GIVEN TO THEM RE PT STATUS FROM CARDIOLOGY STANDPOINT.. AFTER SPEAKING WITH THE DRs FAMILY AT THE BEDSIDE AND NURSING UPDATE IS GIVEN RE VS AND MEDS.. 0830 DR HERNANDEZ IN TO SEE PT SPOKE WITH FAMILY AT THE BEDSIDE ... 0900 FAMILY GONE FROM PT ROOM .. REPOSITIONING DONE.. 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 BEBA IN UNIT AND SPEAKING WITH THE FAMILY.. FAMILY EXPRESSED THAT THEY WISH TO TERMINALLY EXTUBATE PT PT GROUP HOME OUTCOME IS POOR .. 1020 DR CORREA IS INFORMED OF FAMILY DECISION.. ORDERS RECIEVED FROM HIM VIA BEBA AT THIS TIME TO TERMINALLY EXTUBATED PT.. 1045 10MG MORPHINE AND 2 MG ATIVAN GIVEN AT THIS TIME IN PREP FOR TERMINAL EXTUBATION... FAMILY AT THE BEDSIDE... 1120 PT IS EXTUBATED AT THIS TIME BY RT.. 1128 SEE MONITOR STRIPS IN CHART 1145 HEART RATE IS DECREASING AND PT RESPIRATIONS HAVE CEASED.. FAMILY REMAINS AT BEDSIDE.. 1226 PT IS ASYSTOLE SEE HM STRIP.. DR CORREA NOTIFIED.. DR CORREA PRONOUNCED PT .. SPOKE WITH FAMILY.. BRENNEN CALLED WITH UPDATE.. [facility] CALLED FOR BODY CCU NURSE 1330 HOME HERE TO CCU NURSE BODY..
--- NOTE | 2017-03-24 10:09 | NUR ---
Per CMS protocol, restraint report logged into data base.
--- NOTE | 2017-04-15 08:55 | EC ---
PATIENT:KINGSLEY BASHIR DATE OF SERVICE: 03/10/17 SEX: F MEDICAL RECORD: [id number] DATE OF : 64 LOCATION:[facility] AGE OF PATIENT: 56 ADMISSION DATE: 03/10/17 REFERRING PHYSICIAN: INTERPRETING PHYSICIAN: NATALIE SPIVEY MD ECHOCARDIOGRAM REPORT ECHO CHARGES 4 ECHO COMPLETE CLINICAL DIAGNOSIS: TACHYCARDIA ECHOCARDIOGRAPHIC MEASUREMENTS (adult normal given) AC root (d.<3.7cm) 2.8 cm LV Septum d (<1.2 cm> 1.2 cm Valve Excursion 1.8 cm LV Septum (systole) 1.7 cm Left Atria (s.<4.0cm> 3.1 cm LVPW d(<1.2cm) 0.9 cm RV (d.<2.3cm) 2.8 cm LVPW (sytole) 1.5 cm LV diastole(<5.6CM) 4.7 cm MV E-F(>70mm/sec) cm LV systole 3.2 cm LVOT Diameter 1.7 cm MV exc.(>10mm) cm Est.ejection fraction (50-75%) % Pericardial Effusion N DOPPLER: LVIT cm/sec A 128 cm/sec E 39.0 cm/sec LA cm/sec RVSP 53.0 mmHg LVOT 98.0 cm/sec AOP1/2T m/s Asc. Ao 193 cm/sec RVOT 68.0 cm/sec RA cm/sec PA 79.0 cm/sec AV Gradient Peak 15.0 mmHg AV Mean 6.3 mmHg AV Area 1.3 cm MV Gradient Peak 7.5 mmHg MV Mean 2.9 mmHg MV Area cm COMMENTS: Eyeletter: Pascual GRACEOE Placement Secretary: 4 Dr. Spivey TAPE# PACS DATE OF SERVICE: 03/15/2017 PROCEDURE: Transthoracic echocardiogram. FINDINGS: 1. Left ventricle shows mild left ventricular hypertrophy and flow characteristics are consistent with diastolic dysfunction. The patient's LV function is hyperdynamic with ejection fraction of 65+%. 2. Left atrium is normal size, normal function. 3. The mitral valve is shown to have [id number] mitral regurgitation, ECHOCARDIOGRAM REPORT [id number] KINGSLEY BASHIR structurally normal. 4. The aortic valve is normal. 5. The right ventricle is mildly dilated, normal function. 6. Tricuspid valve has moderate tricuspid regurgitation. RVSP approximately 35 mmHg. 7. The pericardium has no pericardial effusion. 8. The pulmonic valve is not well visualized, appears to have normal function. 9. The right atrium is mildly dilated. 10. The IVC is not well visualized. CONCLUSIONS: The patient has hyperdynamic LV function with mildly dilated right-sided chambers and mildly elevated right-sided pressures. TRANSINT:[id number] Voice Confirmation ID: [id number] DOCUMENT ID: [id number] 03/26/2017 Edited to correct date of service, dm. NATALIE SPIVEY MD at 0855 CC: [id number] DICTATION DATE: 03/18/17 0706 PELT GRADER: 03/18/17 0759 DIS IN 03/20/[address] [facility] [address] [place] [address]
--- NOTE | 2017-04-15 08:55 | EC ---
PATIENT:KINGSLEY BASHIR DATE OF SERVICE: 03/10/17 SEX: F MEDICAL RECORD: [id number] DATE OF : 64 LOCATION:[facility] AGE OF PATIENT: 56 ADMISSION DATE: 03/10/17 REFERRING PHYSICIAN: INTERPRETING PHYSICIAN: NATALIE SPIVEY MD ECHOCARDIOGRAM REPORT ECHO CHARGES 4 ECHO COMPLETE CLINICAL DIAGNOSIS: POST CODE , ASSESS EF AND VALVES ECHOCARDIOGRAPHIC MEASUREMENTS (adult normal given) AC root (d.<3.7cm) 2.8 cm LV Septum d (<1.2 cm> 0.8 cm Valve Excursion 1.8 cm LV Septum (systole) 1.0 cm Left Atria (s.<4.0cm> 4.1 cm LVPW d(<1.2cm) 0.8 cm RV (d.<2.3cm) 2.8 cm LVPW (sytole) 1.0 cm LV diastole(<5.6CM) 5.4 cm MV E-F(>70mm/sec) cm LV systole 4.2 cm LVOT Diameter 1.7 cm MV exc.(>10mm) 1.1 cm Est.ejection fraction (50-75%) % Pericardial Effusion N DOPPLER: LVIT cm/sec A 63.0 cm/sec E 84.0 cm/sec LA cm/sec RVSP 37 mmHg LVOT 74 cm/sec AOP1/2T m/s Asc. Ao 106 cm/sec RVOT 48 cm/sec RA cm/sec PA 90 cm/sec AV Gradient Peak 4.49 mmHg AV Mean 2.05 mmHg AV Area 1.2 cm MV Gradient Peak 2.93 mmHg MV Mean 1.22 mmHg MV Area cm COMMENTS: Lining Cleaner: Fuentes HANSEN Ladle Operator: 4 Dr. Spivey TAPE# PACS DATE OF SERVICE: 03/18/2017 PROCEDURE: Transthoracic echocardiogram. Of note is the patient has had a recent event and coded on the floor. This is to document any changes in LV systolic function. FINDINGS: 1. The left ventricle shows apical ballooning in the anterior apical, lateral apical, and inferior apical sections. There is hyperdynamic basilar function. ECHOCARDIOGRAM REPORT [id number] KINGSLEY BASHIR The overall ejection fraction is 15% to 20%. 2. The left atrium is mildly dilated. 3. The mitral valve appears to be grossly normal with [id number] mitral regurgitation. 4. The right atrium is normal size, normal function. 5. The right ventricle appears to be hyperdynamic, however, mildly dilated. 6. The tricuspid valve has mild tricuspid regurgitation. RVSP minimum of 47 mmHg. IMPRESSION: The patient has echocardiographic evidence of Takotsubo cardiomyopathy or an apical ballooning syndrome likely due to her recent event on the floor. TRANSINT:[id number] Voice Confirmation ID: [id number] DOCUMENT ID: [id number] 03/26/2017 Edited to correct date of service, dm. NATALIE SPIVEY MD at 0855 CC: [id number] DICTATION DATE: 03/19/17 0752 SAILBOAT CAPTAIN: 03/19/17 0932 DIS IN 03/20/[address] [facility] [address] [place] [address]
== END 2017-03-20 14:30 | DRG 391 ==
LOC: D.ER 13:59 → D.MS 19:18 → D.ICU 19:18
PROVIDERS: Emergency Medicine; Family Medicine; Internal Medicine Cardiovascular Disease; Internal Medicine Gastroenterology; Internal Medicine Pulmonary Disease; Surgery; ADMIT Family Medicine
PROC: 0DB68ZX Excision of Stomach, Via Natural or Artificial Opening Endoscopic, Diagnostic (ICD-10-PCS; 2017-03-12)
PROC: 0DH63UZ Insertion of Feeding Device into Stomach, Percutaneous Approach (ICD-10-PCS; 2017-03-14)
PROC: 02HV33Z Insertion of Infusion Device into Superior Vena Cava, Percutaneous Approach (ICD-10-PCS; 2017-03-17)
PROC: 5A12012 Performance of Cardiac Output, Single, Manual (ICD-10-PCS; 2017-03-17)
PROC: 0BH17EZ Insertion of Endotracheal Airway into Trachea, Via Natural or Artificial Opening (ICD-10-PCS; 2017-03-17)
PROC: 5A1945Z Respiratory Ventilation, 24-96 Consecutive Hours (ICD-10-PCS; 2017-03-17)
PROC: B2151ZZ Fluoroscopy of Left Heart using Low Osmolar Contrast (ICD-10-PCS; 2017-03-18)
PROC: B2111ZZ Fluoroscopy of Multiple Coronary Arteries using Low Osmolar Contrast (ICD-10-PCS; 2017-03-18)
PROC: 4A023N7 Measurement of Cardiac Sampling and Pressure, Left Heart, Percutaneous Approach (ICD-10-PCS; principal; 2017-03-18 13:00)
DX: K52.9 Noninfective gastroenteritis and colitis, unspecified (principal); E43 Unspecified severe protein-calorie malnutrition; J96.01 Acute respiratory failure with hypoxia; J18.9 Pneumonia, unspecified organism; Z68.1 Body mass index [BMI] 19.9 or less, adult; I51.81 Takotsubo syndrome; I50.20 Unspecified systolic (congestive) heart failure; E87.4 Mixed disorder of acid-base balance; E87.6 Hypokalemia; E83.42 Hypomagnesemia; R13.10 Dysphagia, unspecified; M34.9 Systemic sclerosis, unspecified; D50.0 Iron deficiency anemia secondary to blood loss (chronic); E87.5 Hyperkalemia; K21.9 Gastro-esophageal reflux disease without esophagitis; I73.00 Raynaud's syndrome without gangrene; D69.6 Thrombocytopenia, unspecified; I46.2 Cardiac arrest due to underlying cardiac condition; I46.9 Cardiac arrest, cause unspecified